=== PATIENT | male | born 1990 | race Caucasian/White ===

== ENCOUNTER → 2021-02-02 11:50 | Outpatient (BNVA) | payer MEDICARE, MEDICAID, SELFPAY | PROVIDERS: PCP Internal Medicine; Visit Provider Dietitian, Registered | DX: E66.01 Morbid (severe) obesity due to excess calories (principal); Z68.41 Body mass index [BMI] 40.0-44.9, adult | CPT/HCPCS: 97802 ==

== ENCOUNTER → 2021-03-19 08:40 | Outpatient (BNVA) | payer MEDICARE, MEDICAID, SELFPAY | PROVIDERS: PCP Internal Medicine; Visit Provider Dietitian, Registered | DX: E66.01 Morbid (severe) obesity due to excess calories (principal); Z68.42 Body mass index [BMI] 45.0-49.9, adult | CPT/HCPCS: 97803 ==

== ENCOUNTER 2021-04-07 08:51 | Outpatient (REF) | payer MEDICARE, MEDICAID, SELFPAY ==
[2021-04-07 09:09] LABS: MANUAL DIFF FLAG NO
[2021-04-07 10:12] LABS: Basophils Absolute Auto 0.1 X10*3/uL (0.0-0.2); Basophils Percent Auto 0.8 % (0-2); Eosinophils Absolute Auto 0.2 X10*3/uL (0.0-0.4); Eosinophils Percent Auto 2.4 % (0-4); Hematocrit 46.1 % (42.0-52.0); Hemoglobin 15.3 g/dl (14.0-18.0); Imm Gran Abs Auto 0.05 X10*3/uL (0.00-0.03); Imm Gran Pct Auto 0.6 % (0.0-0.4); Lymphocytes Absolute Auto 2.4 X10*3/uL (1.2-4.9); Lymphocytes Percent Auto 28.3 % (20-40); Mean Corpuscular HGB Conc 33.2 g/dl (31.0-36.0); Mean Corpuscular Volume 87.3 fL (80.0-98.0); Monocytes Absolute Auto 0.9 X10*3/uL (0.1-1.2); Monocytes Percent Auto 10.5 % (2-11); Neutrophils Absolute Auto 4.8 x10*3/uL (2.0-8.3); Neutrophils Percent Auto 57.4 % (45-73); Platelet Count 189 X10*3/uL (160-400); Red Blood Count 5.28 X10*6/uL (4.60-5.80); Red Cell Distribution Width 13.2 % (11.0-16.0); White Blood Count 8.3 X10*3/uL (4.8-10.8)
[2021-04-07 10:45] LABS: Estimated Average Glucose 108 mg/dL; Hemoglobin A1c % 5.4 %
[2021-04-07 10:53] LABS: Alanine Aminotransferase 46 U/L (0-40); Albumin Level 3.9 g/dL (3.5-5.0); Alkaline Phosphatase 63 U/L (39-117); Anion Gap 12 (12-20); Aspartate Amino Transferase 25 U/L (5-37); Bilirubin Total 1.9 mg/dL (0.0-1.0); Blood Urea Nitrogen 18 mg/dL (9-16); Calcium 8.8 mg/dL (8.4-10.2); Carbon Dioxide 28 mmol/L (22-29); Chloride 105 mmol/L (96-108); Cholesterol 154 mg/dL; Estimated Glomerular Filt Rate > 60; Glucose Random 89 mg/dL (60-115); HDL Cholesterol 37 mg/dL; LDL Cholesterol Calculated 96 mg/dl; Potassium 4.4 mmol/L (3.3-5.1); Sodium 141 mmol/L (135-145); Total Protein 6.8 g/dL (6.5-8.0); Triglycerides 108 mg/dL
[2021-04-07 11:06] LABS: Free T4 (Free Thyroxine) 1.03 ng/dL (0.71-1.85); Thyroid Stimulating Hormone 0.69 uIU/mL (0.32-4.0)
[2021-04-09 09:13] LABS: Folate 9.2 ng/mL (> or = 4.0); Vitamin B12 292 pg/mL (200-900)
== END 2021-04-07 08:52 | disposition home or self-care (01) ==
LOC: HO.LAB 08:51
PROVIDERS: PCP Internal Medicine; Visit Provider Internal Medicine
DX: E66.01 Morbid (severe) obesity due to excess calories (principal); E78.00 Pure hypercholesterolemia, unspecified
CPT/HCPCS: 36415; 80053; 80061; 82607; 82746; 83036; 84439; 84443; 85025

== ENCOUNTER → 2021-05-14 09:07 | Outpatient (BNVA) | payer MEDICARE, MEDICAID, SELFPAY | PROVIDERS: PCP Internal Medicine; Visit Provider Dietitian, Registered | DX: E66.01 Morbid (severe) obesity due to excess calories (principal); Z71.3 Dietary counseling and surveillance | CPT/HCPCS: 97803 ==

== ENCOUNTER 2021-06-05 07:43 | Outpatient (REF) | payer MEDICARE, MEDICAID, SELFPAY ==
--- NOTE | ~2021-06-05 | US_ITS ---
EXAMINATION: US ABDOMEN COMPLETE CLINICAL INFORMATION: Morbid obesity. COMPARISON: Previous abdominal ultrasound September 2016 TECHNIQUE: Real-time imaging of the abdominal viscera. FINDINGS: PANCREAS: Not well visualized due to bowel gas ABDOMINAL AORTA: The proximal, mid, and distal segments are normal in caliber. INFERIOR VENA CAVA: Visualized portions are normal. LIVER: The liver is normal in size. The liver contour is normal. Liver echotexture is increased probably representing fatty infiltration. No focal hepatic lesion. There is no intrahepatic biliary duct dilatation seen. GALLBLADDER: Normal. The gallbladder is physiologically distended without evidence of stones, sludge, polyps, wall thickening or pericholecystic fluid. COMMON BILE DUCT: Normal in caliber measuring 0.39 cm in diameter. RIGHT KIDNEY: Normal. No hydronephrosis. No renal calculi or focal parenchymal lesions. The kidney measures 10.5 cm in maximum dimension. LEFT KIDNEY: Normal. No hydronephrosis. No renal calculi or focal parenchymal lesions. The kidney measures 10.4 cm in maximum dimension. SPLEEN: Normal. The spleen measures 11.4 cm in maximum dimension. FREE FLUID: None. US/US abdomen complete IMPRESSION: Echogenic liver probably representing fatty infiltration. Limited visualization of the pancreas.
== END 2021-06-05 07:44 | disposition home or self-care (01) ==
LOC: HO.US 07:43
PROVIDERS: PCP Internal Medicine; Visit Provider Internal Medicine
DX: R79.89 Other specified abnormal findings of blood chemistry (principal)
CPT/HCPCS: 76700

== ENCOUNTER → 2021-08-24 09:00 | Outpatient (BNVA) | payer MEDICARE, MEDICAID, SELFPAY | PROVIDERS: PCP Internal Medicine; Visit Provider Dietitian, Registered | DX: E66.01 Morbid (severe) obesity due to excess calories (principal); Z68.41 Body mass index [BMI] 40.0-44.9, adult; Z71.3 Dietary counseling and surveillance | CPT/HCPCS: 97803 ==

== ENCOUNTER → 2021-11-23 09:43 | Outpatient (BNVA) | payer MEDICARE, MEDICAID, SELFPAY | PROVIDERS: PCP Internal Medicine; Visit Provider Dietitian, Registered | DX: E66.01 Morbid (severe) obesity due to excess calories (principal); Z68.41 Body mass index [BMI] 40.0-44.9, adult | CPT/HCPCS: 97803 ==

== ENCOUNTER → 2022-02-22 11:30 | Outpatient (BNVA) | payer MEDICARE, MEDICAID, SELFPAY | PROVIDERS: Visit Provider Dietitian, Registered | DX: E66.01 Morbid (severe) obesity due to excess calories (principal) | CPT/HCPCS: 97803 ==

== ENCOUNTER 2022-07-12 09:44 | Outpatient (REF) | payer MEDICARE, MEDICAID, SELFPAY ==
[2022-07-12 10:07] LABS: Basophils Absolute Auto 0.1 X10*3/uL (0.0-0.2); Basophils Percent Auto 0.8 % (0-2); Eosinophils Absolute Auto 0.2 X10*3/uL (0.0-0.4); Eosinophils Percent Auto 2.5 % (0-4); Hematocrit 46.3 % (42.0-52.0); Hemoglobin 15.8 g/dl (14.0-18.0); Imm Gran Abs Auto 0.03 X10*3/uL (0.00-0.03); Imm Gran Pct Auto 0.4 % (0.0-0.4); Lymphocytes Absolute Auto 2.1 X10*3/uL (1.2-4.9); Lymphocytes Percent Auto 27.8 % (20-40); MANUAL DIFF FLAG NO; Mean Corpuscular HGB Conc 34.1 g/dl (31.0-36.0); Mean Corpuscular Hemoglobin 28.7 pg (27.0-33.0); Mean Platelet Volume 10.4 fL (9.4-12.4); Monocytes Absolute Auto 0.7 X10*3/uL (0.1-1.2); Monocytes Percent Auto 9.1 % (2-11); Neutrophils Absolute Auto 4.5 x10*3/uL (2.0-8.3); Neutrophils Percent Auto 59.4 % (45-73); Platelet Count 207 X10*3/uL (160-400); Red Blood Count 5.51 X10*6/uL (4.60-5.80); White Blood Count 7.5 X10*3/uL (4.8-10.8)
[2022-07-12 11:11] LABS: Alanine Aminotransferase 133 U/L (0-40); Alkaline Phosphatase 63 U/L (39-117); Anion Gap 11 (12-20); Aspartate Amino Transferase 61 U/L (5-37); Bilirubin Total 2.7 mg/dL (0.0-1.0); Blood Urea Nitrogen 17 mg/dL (9-16); Calcium 8.6 mg/dL (8.4-10.2); Carbon Dioxide 27 mmol/L (22-29); Chloride 105 mmol/L (96-108); Cholesterol 141 mg/dL; Estimated Glomerular Filt Rate > 60; Glucose Random 104 mg/dL (60-115); HDL Cholesterol 46 mg/dL; LDL Cholesterol Calculated 80 mg/dl; Potassium 4.4 mmol/L (3.3-5.1); Sodium 139 mmol/L (135-145); Total Protein 6.9 g/dL (6.5-8.0); Triglycerides 77 mg/dL
[2022-07-12 11:44] LABS: Folate 13.2 ng/mL (> or = 4.0); Vitamin B12 373 pg/mL (200-900)
== END 2022-07-12 09:45 | disposition home or self-care (01) ==
LOC: HO.LAB 09:44
PROVIDERS: PCP Internal Medicine; Visit Provider Internal Medicine
DX: E66.01 Morbid (severe) obesity due to excess calories (principal); E78.00 Pure hypercholesterolemia, unspecified; Z71.3 Dietary counseling and surveillance
CPT/HCPCS: 36415; 80053; 80061; 82607; 82746; 84439; 84443; 85025; 97803

== ENCOUNTER → 2022-09-02 10:16 | Outpatient (BNVA) | payer MEDICARE, MEDICAID, SELFPAY | PROVIDERS: PCP Internal Medicine; Visit Provider Dietitian, Registered | DX: E66.01 Morbid (severe) obesity due to excess calories (principal); Z71.3 Dietary counseling and surveillance | CPT/HCPCS: 97803 ==

== ENCOUNTER 2023-01-08 08:18 | Outpatient (AMB) | payer MEDICARE, MEDICAID, SELFPAY ==
[2023-01-08 08:24] VITALS: BP 118/70; PULSE 86; O2SAT 97; BMI 46.4
--- NOTE | 2023-01-08 08:24 | A.OFFPC_ITS ---
Vital Signs 01/08/23 08:24 Height 5 ft 7 in Weight 296 lb BMI 46.4 BP 118/70 Blood Pressure Location Lt brachial Position Sitting Pulse 86 Pulse Source Pulse Oximeter Pulse Oximetry (%) 97 Oxygen Delivery Method Room Air Intake Visit Reasons: htn, Fatty Liver Allergies No Known Allergies Allergy (Verified 07/25/22 10:20) Medication List - Last Reconciled 01/08/23 by Panda Bansal MD blood pressure monitor (Blood Pressure Kit) As directed calcium carb,lactat-vitamin D3 200 mg-6.25 mcg (250 unit) 1 tab PO DAILY [CPAP full face mask medium pressure of 12 cm humidified air As directed] folic acid 1 mg PO DAILY hydrochlorothiazide 12.5 mg PO DAILY ketoconazole 2% 1 appl topical 2XW liraglutide (weight loss) (Saxenda) inject subcutaneously once daily: week 1 = 0.6 mg; week 2 = 1.2 mg; week 3 = 1.8 mg; week 4 = 2.4 mg; then 3 mg daily subcut loratadine 10 mg PO DAILY trazodone 150 mg PO BEDTIME PRN triamcinolone acetonide 0.5% 1 appl topical BID Tobacco use date assessed: 07/25/22 Dental Screening Dental Screen Date: 01/08/23 Did you have a dental visit in the last 12 months?: Yes Did you have a dental problem in the last 6 months where you did not have access to dental care?: No Was dental information given to patient?: Patient has dentist HPI htn, Fatty Liver HPI Details 32-year-old morbidly obese male with his tory of sleep apnea fatty liver impaired glucose tolerance hypertension last seen in June 2022 patient is here for follow-up. Patient's last blood work was done in June noted elevated liver function test and elevated blood sugar. Had a long discussion with family regarding weight loss for the patient patient continues to gain weight even with the airplane mechanic apprentice guidance. Was epic prescription was sent in but not covered. 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 Social History (Updated 01/12/21 @ 10:03 by Panda Bansal MD) Housing: Other Alcohol intake: never Patient Tobacco Use Status: Never used Tobacco e-Cigarette/Vaping Use: Never Used Second Hand Smoke Exposure: No service: No Current occupational status: employed Cognitive needs: Yes Hearing needs: No Vision needs: No Questionnaire PHQ-9 Over the last 2 weeks, how often have you been bothered by any of the following problems? 1. Little interest or pleasure in doing things: not at all 2. Feeling down, depressed, or hopeless: not at all 3. Trouble falling or staying asleep, or sleeping too much: not at all 4. Feeling tired or having little energy: not at all 5. Poor appetite or overeating: not at all 6. Feeling bad about yourself - or that you are a failure or have let yourself or your family down: not at all 7. Trouble concentrating on things, such as reading the newspaper or watching television: not at all 8. Moving or speaking so slowly that other people could have noticed. Or the opposite - being so fidgety or restless that you have been moving around a lot more than usual: not at all 9. Thoughts that you would be better off or of hurting yourself in some way: not at all Total score: 0 Depression Screening Interpretation: Negative Source: Developed by Drs. Andrés Arias, Dexter Benitez and colleagues, with an educational carol ann from [employer]. Thrive Questionnaire Date Thrive assessed: 07/25/22 AUDIT C Alcohol Use Questionnaire (AUDIT-C) 1. How often do you have a drink containing alcohol?: Never 3. How often do you have six or more drinks on one occasion?: Never Total Score: 0 AUTUMN-7 AMB Questionnaire AUTUMN-7 Date AUTUMN - 7 assessed: 07/25/22 Source: Developed by Drs. Andrés Arias, Dexter Benitez and colleagues, with an educational carol ann from [employer]. Physical exam (Primary Care) Vital Signs: Last Vital Signs Pulse 86 01/08/23 08:24 BP 118/70 01/08/23 08:24 Pulse Ox 97 01/08/23 08:24 Oxygen Delivery Method Room Air 01/08/23 08:24 BMI result Body Mass Index 46.4 Tobacco/Smoking Status: Tobacco use Status Tobacco use date assessed 07/25/22 01/08/23 08:30 Patient Tobacco Use Status Never used Tobacco 01/08/23 08:30 e-Cigarette/Vaping Use Never Used 01/08/23 08:30 PHQ-9: PHQ-9 Score PHQ-9: Total score 0 01/08/23 08:30 Depression Screening Interpretation: Negative Thrive Assessment: Date of Thrive Assessment Date Thrive assessed 07/25/22 01/08/23 08:30 Const General: alert; No acute distress Eyes Conjunctivae: conjunctivae normal Resp Auscultation: clear to auscultation bilaterally Cardio Rate: regular rate Rhythm: regular rhythm GI Inspection: Yes normal to inspection Extrem General: Yes normal to inspection and No edema Assessment and Plan Assessment & Plan (1) Hypertension: Code(s): I10 - Essential (primary) hypertension Plan: Continue with blood pressure medication. Decrease salt intake and exercise patient presently is on hydrochlorothiazide . Patient has blood pressure monitor and advised to continue to monitor (2) Impaired glucose tolerance: Code(s): R73.02 - Impaired glucose tolerance (oral) Plan: Decrease the amount of carbohydrate intake, pasta, bread, rice and potatoes are all sugar and that is aside from all the sweet stuff, remember that fruits are good but they are Sweet also. Will do retesting (3) Fatty liver: Code(s): K76.0 - Fatty (change of) liver, not elsewhere classified Plan: Low-fat diet patient has been referred to the duration (4) Obstructive sleep apnea: Comment: CPAP use Code(s): G47.33 - Obstructive sleep apnea (adult) (pediatric) Plan: Continue using the CPAP more than 4 hours a night and benefits from this (5) Obesities, morbid: Code(s): E66.01 - Morbid (severe) obesity due to excess calories Plan: Diet and exercise. Ozempic prescription sent in but not covered. Will try to send in Saxenda Orders: Orders Complete Blood Count Auto Diff Today R73.02 - Impaired glucose tolerance (oral) Hemoglobin A1c Today R73.02 - Impaired glucose tolerance (oral) Comprehensive Met. Panel Today R73.02 - Impaired glucose tolerance (oral) Lipid Panel Today E78.00 - Pure hypercholesterolemia, unspecified, R73.02 - Impaired glucose tolerance (oral) Thyroid Stimulating Hormone Today R73.02 - Impaired glucose tolerance (oral) Free T4 (Free Thyroxine) Today R73.02 - Impaired glucose tolerance (oral) Medications: New liraglutide (weight loss) (Saxenda) inject subcutaneously once daily: week 1 = 0.6 mg; week 2 = 1.2 mg; week 3 = 1.8 mg; week 4 = 2.4 mg; then 3 mg daily subcut 15 mL 0RF E66.01 - Morbid (severe) obesity due to excess calories Coding Level of Care Code Est Pt Level 4 (79771) Diagnoses Hypertension I10 Impaired glucose tolerance R73.02 Fatty liver K76.0 Obstructive sleep apnea G47.33 Obesities, morbid E66.01
== END 2023-01-08 08:52 | disposition home or self-care (01) ==
PROVIDERS: PCP Internal Medicine; Visit Provider Internal Medicine
DX: I10 Essential (primary) hypertension (principal); R73.02 Impaired glucose tolerance (oral); E66.01 Morbid (severe) obesity due to excess calories; Z68.42 Body mass index [BMI] 45.0-49.9, adult; K76.0 Fatty (change of) liver, not elsewhere classified; G47.33 Obstructive sleep apnea (adult) (pediatric)
CPT/HCPCS: 99214

== ENCOUNTER 2023-01-08 09:02 | Outpatient (REF) | payer MEDICARE, MEDICAID, SELFPAY ==
[2023-01-08 09:19] LABS: MANUAL DIFF FLAG NO
[2023-01-08 10:16] LABS: Basophils Absolute Auto 0.1 X10*3/uL (0.0-0.2); Eosinophils Absolute Auto 0.2 X10*3/uL (0.0-0.4); Eosinophils Percent Auto 2.1 % (0-4); Hematocrit 45.6 % (42.0-52.0); Hemoglobin 15.6 g/dl (14.0-18.0); Imm Gran Abs Auto 0.05 X10*3/uL (0.00-0.03); Imm Gran Pct Auto 0.6 % (0.0-0.4); Lymphocytes Absolute Auto 2.3 X10*3/uL (1.2-4.9); Lymphocytes Percent Auto 26.9 % (20-40); Mean Corpuscular HGB Conc 34.2 g/dl (31.0-36.0); Mean Corpuscular Hemoglobin 29.4 pg (27.0-33.0); Monocytes Absolute Auto 0.7 X10*3/uL (0.1-1.2); Monocytes Percent Auto 8.6 % (2-11); Neutrophils Absolute Auto 5.1 x10*3/uL (2.0-8.3); Neutrophils Percent Auto 60.8 % (45-73); Platelet Count 192 X10*3/uL (160-400); Red Cell Distribution Width 13.2 % (11.0-16.0); White Blood Count 8.4 X10*3/uL (4.8-10.8)
[2023-01-08 10:26] LABS: Estimated Average Glucose 100 mg/dL; Hemoglobin A1c % 5.1 % (<6.0)
[2023-01-08 10:49] LABS: Alanine Aminotransferase 126 U/L (0-40); Albumin Level 3.8 g/dL (3.5-5.0); Alkaline Phosphatase 63 U/L (39-117); Anion Gap 10 (12-20); Aspartate Amino Transferase 47 U/L (5-37); Bilirubin Total 1.1 mg/dL (0.0-1.0); Blood Urea Nitrogen 20 mg/dL (9-16); Calcium 8.7 mg/dL (8.4-10.2); Carbon Dioxide 26 mmol/L (22-29); Chloride 108 mmol/L (96-108); Cholesterol 153 mg/dL (<200); Estimated Glomerular Filt Rate > 60; Glucose Random 98 mg/dL (60-115); HDL Cholesterol 45 mg/dL (>40); LDL Cholesterol Calculated 93 mg/dL (<100); Potassium 4.1 mmol/L (3.3-5.1); Sodium 140 mmol/L (135-145); Total Protein 7.1 g/dL (6.5-8.0); Triglycerides 78 mg/dL (<150)
[2023-01-08 11:10] LABS: Free T4 (Free Thyroxine) 0.97 ng/dL (0.71-1.85); Thyroid Stimulating Hormone 0.66 uIU/mL (0.32-4.0)
== END 2023-01-08 09:03 | disposition home or self-care (01) ==
LOC: HO.LAB 09:02
PROVIDERS: PCP Internal Medicine; Visit Provider Internal Medicine
DX: R73.02 Impaired glucose tolerance (oral) (principal); E78.00 Pure hypercholesterolemia, unspecified
CPT/HCPCS: 36415; 80053; 80061; 83036; 84439; 84443; 85025

== ENCOUNTER 2023-01-28 08:59 | Outpatient (AMB) | payer MEDICARE, MEDICAID, SELFPAY ==
[2023-01-28 09:07] VITALS: BP 122/76; PULSE 100; O2SAT 98; BMI 45.9
--- NOTE | 2023-01-28 09:07 | MHC.PC.OV ---
Vital Signs 01/28/23 09:07 Height 5 ft 7 in Weight 293 lb BMI 45.9 BP 122/76 Blood Pressure Location Lt brachial Position Sitting Pulse 100 Pulse Source Pulse Oximeter Pulse Oximetry (%) 98 Oxygen Delivery Method Room Air Intake Visit Reasons: PE Allergies No Known Allergies Allergy (Verified 01/28/23 09:07) Medication List - Last Reconciled 01/28/23 by Panda Bansal MD blood pressure monitor (Blood Pressure Kit) As directed calcium carb,lactat-vitamin D3 200 mg-6.25 mcg (250 unit) 1 tab PO DAILY [CPAP full face mask medium pressure of 12 cm humidified air As directed] folic acid 1 mg PO DAILY hydrochlorothiazide 12.5 mg PO DAILY ketoconazole 2% 1 appl topical 2XW liraglutide (weight loss) (Saxenda) inject subcutaneously once daily: week 1 = 0.6 mg; week 2 = 1.2 mg; week 3 = 1.8 mg; week 4 = 2.4 mg; then 3 mg daily subcut loratadine 10 mg PO DAILY trazodone 150 mg PO BEDTIME PRN triamcinolone acetonide 0.5% 1 appl topical BID Tobacco use date assessed: 07/25/22 Dental Screening Dental Screen Date: 01/28/23 Did you have a dental visit in the last 12 months?: Yes Did you have a dental problem in the last 6 months where you did not have access to dental care?: No Was dental information given to patient?: Patient has dentist HPI PE HPI Details 32-year-old morbidly obese male with cerebral palsy, learning disability with obstructive sleep apnea fatty liver impaired glucose tolerance hypertension coming in for physical exam last seen in December 2022. [facility] Medical History (Updated 01/08/23 @ 11:13 by Brandi Linder) LFT elevation Seizures Vitamin D deficiency Cerebral palsy Obstructive sleep apnea Surgical History (Updated 01/08/23 @ 11:13 by Brandi Linder) Hx of adenoidectomy History of vasectomy Family History (Updated 01/28/23 @ 09:17 by Panda Bansal MD) Father Alcohol abuse Mother Uterine cancer Brother No problems noted. Maternal Grandfather Myocardial infarct Maternal Grandmother Myocardial infarct Social History (System 01/08/23 @ 11:13 by Brandi Linder) Housing: Other Alcohol intake: never Patient Tobacco Use Status: Never used Tobacco e-Cigarette/Vaping Use: Never Used Second Hand Smoke Exposure: No service: No Current occupational status: employed Cognitive needs: Yes Hearing needs: No Vision needs: No Questionnaire PHQ-9 Over the last 2 weeks, how often have you been bothered by any of the following problems? 1. Little interest or pleasure in doing things: not at all 2. Feeling down, depressed, or hopeless: not at all 3. Trouble falling or staying asleep, or sleeping too much: not at all 4. Feeling tired or having little energy: not at all 5. Poor appetite or overeating: not at all 6. Feeling bad about yourself - or that you are a failure or have let yourself or your family down: not at all 7. Trouble concentrating on things, such as reading the newspaper or watching television: not at all 8. Moving or speaking so slowly that other people could have noticed. Or the opposite - being so fidgety or restless that you have been moving around a lot more than usual: not at all 9. Thoughts that you would be better off or of hurting yourself in some way: not at all Total score: 0 Depression Screening Interpretation: Negative Source: Developed by Drs. Andrés Arias, Dimple Hill, Dextre Richmond and colleagues, with an educational carol ann from [employer]. Thrive Questionnaire Date Thrive assessed: 07/25/22 AUDIT C Alcohol Use Questionnaire (AUDIT-C) 1. How often do you have a drink containing alcohol?: Never 3. How often do you have six or more drinks on one occasion?: Never Total Score: 0 AUTUMN-7 AMB Questionnaire AUTUMN-7 Date AUTUMN - 7 assessed: 07/25/22 Source: Developed by Drs. Andrés Arias, Dimple Hill, Dexter Richmond and colleagues, with an educational carol ann from [employer]. Review of Systems Const Denies poor appetite and Denies weakness Eyes Denies no additional complaints ENT Reports Normal hearing present, Denies dizziness, Denies nasal congestion, Denies tinnitus and Denies sore throat Card Denies chest pain, Denies syncope, Denies rapid heart rate and Denies dyspnea Resp Denies cough and Denies dyspnea GI Denies change in stool character, Reports constipation, Denies diarrhea, Denies nausea and Denies vomiting Denies dysuria and Denies urinary frequency Neuro Reports Normal hearing present, Denies confusion, Denies dizziness, Denies syncope and Denies weakness Psych Denies confusion Physical exam (Primary Care) Vital Signs: Last Vital Signs Pulse 100 01/28/23 09:07 BP 122/76 01/28/23 09:07 Pulse Ox 98 01/28/23 09:07 Oxygen Delivery Method Room Air 01/28/23 09:07 BMI result Body Mass Index 45.9 Tobacco/Smoking Status: Tobacco use Status Tobacco use date assessed 07/25/22 01/28/23 09:08 Patient Tobacco Use Status Never used Tobacco 01/28/23 09:08 e-Cigarette/Vaping Use Never Used 01/28/23 09:08 PHQ-9: PHQ-9 Score PHQ-9: Total score 0 01/28/23 09:12 Depression Screening Interpretation: Negative Thrive Assessment: Date of Thrive Assessment Date Thrive assessed 07/25/22 01/28/23 09:08 Const General: alert and awake; No confusion Orientation/consciousness: No confusion HENMT Head: Yes normocephalic Ears: external ears normal and TM's normal bilaterally Face and sinus: Yes normal facial exam Mouth: moist mucous membranes Throat: Yes tonsils normal Eyes Conjunctivae: conjunctivae normal Pupils: Equal, round and reactive pupils present and Pupil accommodation reflex normal Direct Ophthalmoscopy: normal light reflex Neck Neck: No lymphadenopathy Thyroid: Thyroid normal Chest Chest palpation & inspection: normal inspection of the chest Resp Effort & Inspection: normal respiratory effort and no audible wheezes Auscultation: clear to auscultation bilaterally, no crackles, no wheezes and lung sounds not diminished Cardio Rate: regular rate Rhythm: regular rhythm Peripheral pulses: radial pulses present and dorsalis pedis present GI Other: Visual exam negative Palpation (GI): no masses Auscultation: normal bowel sounds and normoactive bowel sounds Rectal Exam - Male: Yes deferred Male General Exam: Yes normal external exam Skin General skin exam: no rashes or lesions noted Rashes: no rashes Neuro General: deep tendon reflexes 2+ bilaterally and No confusion Cranial nerves: Yes Equal, round and reactive pupils present, Yes Midline tongue present, Yes Normal hearing present and Yes Ability to bilaterally elevate shoulders present Cognition (Neuro): normal cognition Gait exam (Neuro): Normal gait present Motor exam (neuro): 5 motor strength present throughout Deep tendon reflexes (DTR's): Right brachioradialis reflex intensity grade: 2+, Left brachioradialis reflex intensity grade: 2+, Right patellar reflex intensity grade: 2+ and Left patellar reflex intensity grade: 2+ Extrem General: No edema Office Procedures Flu Questionnaire Does the patient have a severe egg allergy?: No Does the patient have severe life threatening allergies?: No Does the patient have a fever or illness today?: No Has the patient ever had Guillain-Greenbush Syndrome?: No Has the patient ever had any past reaction to a flu shot?: No Immunizations flu vacc [id number] 6mos up(PF) 60 mcg(15 mcgx4)/0.5 mL IM syringe Performing Provider: Panda Bansal MD [facility] Administered by: Monika Meza CMA on 01/28/23 09:16 Dose Route Admin Location Dispensed Lot Number Expiration Date [employer] 0.5 mL IM Left Deltoid 0.5 mL [id number] 10/26/23 23288-154-20 [employer] VIS Given Date VIS Provided VIS Publication Date 01/28/23 Single Vaccine 20 Eligibility Eligibility Date Funding Source Not [facility] Eligible 01/28/23 Private Assessment and Plan Assessment & Plan (1) Annual physical exam: Code(s): Z00.00 - Encounter for general adult medical examination without abnormal findings (2) Obesities, morbid: Code(s): E66.01 - Morbid (severe) obesity due to excess calories Plan: Diet and exercise (3) Obstructive sleep apnea: Comment: CPAP use Code(s): G47.33 - Obstructive sleep apnea (adult) (pediatric) Plan: Continue to use the CPAP more than 4 hours a night and benefits (4) Fatty liver: Code(s): K76.0 - Fatty (change of) liver, not elsewhere classified Plan: Low-fat diet and exercise (5) Hypertension: Code(s): I10 - Essential (primary) hypertension Plan: Continue with blood pressure medication. Decrease salt intake and exercise continue with hydrochlorothiazide 12.5 mg once a day (6) Impaired glucose tolerance: Code(s): R73.02 - Impaired glucose tolerance (oral) Plan: Decrease the amount of carbohydrate intake, pasta, bread, rice and potatoes are all sugar and that is aside from all the sweet stuff, remember that fruits are good but they are Sweet also. Hemoglobin A1c results within normal limit Orders: Orders Influenza [id number] Immunization Today Z23 - Encounter for immunization Coding Level of Care Code Est Pt Prev Care 18-39y([id number]) Diagnoses Annual physical exam Z00.00 Obesities, morbid E66.01 Obstructive sleep apnea G47.33 Fatty liver K76.0 Hypertension I10 Impaired glucose tolerance R73.02
== END 2023-01-28 09:35 | disposition home or self-care (01) ==
PROVIDERS: Visit Provider Internal Medicine
DX: Z00.00 Encounter for general adult medical examination without abnormal findings (principal); E66.01 Morbid (severe) obesity due to excess calories; Z68.42 Body mass index [BMI] 45.0-49.9, adult; Z23 Encounter for immunization; G47.33 Obstructive sleep apnea (adult) (pediatric); K76.0 Fatty (change of) liver, not elsewhere classified; I10 Essential (primary) hypertension; R73.02 Impaired glucose tolerance (oral)
CPT/HCPCS: 90471; 90686; 99395

== ENCOUNTER 2023-07-30 07:31 | Outpatient (AMB) | payer OTHER, MEDICAID, SELFPAY ==
[2023-07-30 07:56] VITALS: BP 128/76; PULSE 89; O2SAT 99; BMI 47.5
--- NOTE | 2023-07-30 07:56 | A.OFFPC_ITS ---
Vital Signs 07/30/23 07:56 Height 5 ft 7 in Weight 303 lb BMI 47.5 BP 128/76 Blood Pressure Location Lt brachial Position Sitting Pulse 89 Pulse Source Pulse Oximeter Pulse Oximetry (%) 99 Oxygen Delivery Method Room Air Intake Visit Reasons: obesity, HTN Allergies No Known Allergies Allergy (Verified 07/30/23 07:57) Medication List - Last Reconciled 07/30/23 by Panda Bansal MD blood pressure monitor (Blood Pressure Kit) As directed calcium carb,lactat-vitamin D3 200 mg-6.25 mcg (250 unit) 1 tab PO DAILY [CPAP full face mask medium pressure of 12 cm humidified air As directed] folic acid 1 mg PO DAILY hydrochlorothiazide 12.5 mg PO DAILY ketoconazole 2% 1 appl topical 2XW loratadine 10 mg PO DAILY semaglutide (weight loss) (Wegovy) 0.25 mg (0.5 mL) subcut QWEEK trazodone 150 mg PO BEDTIME PRN triamcinolone acetonide 0.5% 1 appl topical BID Tobacco use date assessed: 07/30/23 Dental Screening Dental Screen Date: 07/30/23 Did you have a dental visit in the last 12 months?: No Did you have a dental problem in the last 6 months where you did not have access to dental care?: No Was dental information given to patient?: Patient has dentist HPI obesity, HTN HPI Details 33-year-old morbidly obese male with obs tructive sleep apnea hypertension impaired glucosefatty liver coming in for follow-up. January 2023 last seen. PFSH Medical History (Updated 01/08/23 @ 11:13 by Brandi Linder) LFT elevation Seizures Vitamin D deficiency Cerebral palsy Obstructive sleep apnea Surgical History (Updated 01/08/23 @ 11:13 by Barndi Linder) Hx of adenoidectomy History of vasectomy Family History (Updated 01/28/23 @ 09:17 by Panda Bansal MD) Father Alcohol abuse Mother Uterine cancer Brother No problems noted. Maternal Grandfather Myocardial infarct Maternal Grandmother Myocardial infarct Social History (System 01/08/23 @ 11:13 by Brandi Linder) Housing: Other Alcohol intake: never Patient Tobacco Use Status: Never used Tobacco e-Cigarette/Vaping Use: Never Used Second Hand Smoke Exposure: No service: No Current occupational status: employed Cognitive needs: Yes Hearing needs: No Vision needs: No Questionnaire PHQ-9 Over the last 2 weeks, how often have you been bothered by any of the following problems? 1. Little interest or pleasure in doing things: not at all 2. Feeling down, depressed, or hopeless: not at all 3. Trouble falling or staying asleep, or sleeping too much: not at all 4. Feeling tired or having little energy: not at all 5. Poor appetite or overeating: not at all 6. Feeling bad about yourself - or that you are a failure or have let yourself or your family down: not at all 7. Trouble concentrating on things, such as reading the newspaper or watching television: not at all 8. Moving or speaking so slowly that other people could have noticed. Or the opposite - being so fidgety or restless that you have been moving around a lot more than usual: not at all 9. Thoughts that you would be better off or of hurting yourself in some way: not at all Total score: 0 Depression Screening Interpretation: Negative Depression Screening Done: Yes Source: Developed by Drs. Andrés Arias, Dimple Hill, Dexter Richmond and colleagues, with an educational carol ann from [employer]. Thrive Questionnaire Date Thrive assessed: 07/30/23 I am a: Patient What is your living situation today?: I have a steady place to live Within the past 12 months, did the food you bought not last and you didn't have the money to get more?: Never true Within the past 12 months, did you worry whether your food would run out before you got money to buy more?: Never true Do you have trouble paying for medicines?: No Do you have trouble getting transportation to medical appointments?: No Do you have trouble paying your heating and electricity bill?: No Do you have trouble taking care of your child, family member or friend?: No Do you have trouble with day-to-day activities such as bathing, preparing meals, shopping, managing finances, etc.?: No Are you currently unemployed and looking for a job?: No Are you interested in more education?: No Currently or been in a relationship where the following occur: no concerns reported THRIVE Score: 0 AUDIT C Alcohol Use Questionnaire (AUDIT-C) 1. How often do you have a drink containing alcohol?: Never 3. How often do you have six or more drinks on one occasion?: Never Total Score: 0 AUTUMN-7 AMB Questionnaire AUTUMN-7 Date AUTUMN - 7 assessed: 07/30/23 Feeling nervous, anxious, or on edge: 0 = Not at all Not being able to stop or control worryin = Not at all Worrying too much about different things: 0 = Not at all Trouble relaxin = Not at all Being so restless that it is hard to sit still: 0 = Not at all Becoming easily annoyed or irritable: 0 = Not at all Feeling afraid as if something awful might happen: 0 = Not at all Total AUTUMN-7 score (0-4 normal; 5-9 mild; 10-14 moderate; 15-21 severe): 0 Source: Developed by Drs. Andrés Arias, Dimple Hill, Dexter Richmond and colleagues, with an educational carol ann from [employer]. Physical exam (Primary Care) Vital Signs: Last Vital Signs Pulse 89 07/30/23 07:56 BP 128/76 07/30/23 07:56 Pulse Ox 99 07/30/23 07:56 Oxygen Delivery Method Room Air 07/30/23 07:56 BMI result Body Mass Index 47.5 Tobacco/Smoking Status: Tobacco use Status Tobacco use date assessed 07/30/23 07/30/23 08:06 Patient Tobacco Use Status Never used Tobacco 07/30/23 08:06 e-Cigarette/Vaping Use Never Used 07/30/23 08:06 PHQ-9: PHQ-9 Score PHQ-9: Total score 0 07/30/23 08:06 Depression Screening Interpretation: Negative Thrive Assessment: Date of Thrive Assessment Date Thrive assessed 07/30/23 07/30/23 08:06 Currently or been in a relationship where the following occur: no concerns reported Const General: alert; No acute distress Eyes Conjunctivae: conjunctivae normal Resp Auscultation: clear to auscultation bilaterally Cardio Rate: regular rate Rhythm: regular rhythm GI Inspection: Yes normal to inspection Extrem General: Yes normal to inspection and No edema Assessment and Plan Assessment & Plan (1) Obesities, morbid: Code(s): E66.01 - Morbid (severe) obesity due to excess calories Plan: Prescription for wegovy was tried but with no coverage from insurance. Advised to keep active and eat healthy (2) Obstructive sleep apnea: Comment: CPAP use Code(s): G47.33 - Obstructive sleep apnea (adult) (pediatric) Plan: continue to use the CPAP more than 4 hours a night and benefits from this (3) Fatty liver: Code(s): K76.0 - Fatty (change of) liver, not elsewhere classified Plan: Low-fat diet (4) Hypertension: Code(s): I10 - Essential (primary) hypertension Plan: Continue with blood pressure medication. Decrease salt intake and exercise Orders: Orders Hemoglobin A1c 6 Months H61.23 - Impacted cerumen, bilateral Thyroid Stimulating Hormone 6 Months I10 - Essential (primary) hypertension Vitamin B12 and Folate 6 Months I10 - Essential (primary) hypertension Free T4 (Free Thyroxine) 6 Months I10 - Essential (primary) hypertension Comprehensive Met. Panel 6 Months H61.23 - Impacted cerumen, bilateral Complete Blood Count Auto Diff 6 Months I10 - Essential (primary) hypertension Lipid Panel 6 Months E78.00 - Pure hypercholesterolemia, unspecified, I10 - Essential (primary) hypertension Medications: Refilled semaglutide (weight loss) (Wegovy) administer weeks 1 through 4 of therapy 0.25 mg (0.5 mL) subcut QWEEK 2 mL 0RF E66.01 - Morbid (severe) obesity due to excess calories Coding Level of Care Code Est Pt Level 4 (71927) Diagnoses Obesities, morbid E66.01 Obstructive sleep apnea G47.33 Fatty liver K76.0 Hypertension I10
== END 2023-07-30 08:48 | disposition home or self-care (01) ==
PROVIDERS: PCP Internal Medicine; Visit Provider Internal Medicine
DX: E66.01 Morbid (severe) obesity due to excess calories (principal); Z68.42 Body mass index [BMI] 45.0-49.9, adult; K76.0 Fatty (change of) liver, not elsewhere classified; I10 Essential (primary) hypertension
CPT/HCPCS: 99214

== ENCOUNTER 2024-01-24 08:14 | Outpatient (REF) | payer OTHER, SELFPAY ==
[2024-01-24 08:27] LABS: MANUAL DIFF FLAG NO
[2024-01-24 09:36] LABS: Basophils Absolute Auto 0.1 X10*3/uL (0.0-0.2); Basophils Percent Auto 0.9 % (0-2); Eosinophils Absolute Auto 0.2 X10*3/uL (0.0-0.4); Hematocrit 46.6 % (42.0-52.0); Hemoglobin 15.3 g/dl (14.0-18.0); Imm Gran Abs Auto 0.05 X10*3/uL (0.00-0.03); Imm Gran Pct Auto 0.6 % (0.0-0.4); Lymphocytes Absolute Auto 2.4 X10*3/uL (1.2-4.9); Lymphocytes Percent Auto 30.5 % (20-40); Mean Corpuscular HGB Conc 32.8 g/dl (31.0-36.0); Mean Corpuscular Hemoglobin 28.9 pg (27.0-33.0); Mean Corpuscular Volume 88.1 fL (80.0-98.0); Mean Platelet Volume 11.1 fL (9.4-12.4); Monocytes Absolute Auto 0.7 X10*3/uL (0.1-1.2); Monocytes Percent Auto 9.3 % (2-11); Neutrophils Absolute Auto 4.4 x10*3/uL (2.0-8.3); Neutrophils Percent Auto 55.7 % (45-73); Platelet Count 206 X10*3/uL (160-400); Red Blood Count 5.29 X10*6/uL (4.60-5.80); Red Cell Distribution Width 13.2 % (11.0-16.0); White Blood Count 7.9 X10*3/uL (4.8-10.8)
[2024-01-24 09:43] LABS: Estimated Average Glucose 105 mg/dL; Hemoglobin A1c % 5.3 % (<6.0)
[2024-01-24 10:14] LABS: Alanine Aminotransferase 88 U/L (0-40); Albumin Level 3.7 g/dL (3.5-5.0); Alkaline Phosphatase 67 U/L (39-117); Anion Gap 11 (12-20); Aspartate Amino Transferase 45 U/L (5-37); Blood Urea Nitrogen 17 mg/dL (9-16); Calcium 8.5 mg/dL (8.4-10.2); Carbon Dioxide 25 mmol/L (22-29); Chloride 109 mmol/L (96-108); Cholesterol 135 mg/dL (<200); Estimated Glomerular Filt Rate > 60; Glucose Random 112 mg/dL (60-115); HDL Cholesterol 41 mg/dL (>40); LDL Cholesterol Calculated 66 mg/dL (<100); Sodium 141 mmol/L (135-145); Total Protein 6.9 g/dL (6.5-8.0); Triglycerides 141 mg/dL (<150)
[2024-01-24 10:33] LABS: Free T4 (Free Thyroxine) 0.95 ng/dL (0.71-1.85); Thyroid Stimulating Hormone 0.58 uIU/mL (0.32-4.0)
[2024-01-24 10:36] LABS: Folate 7.9 ng/mL (> or = 4.0); Vitamin B12 272 pg/mL (200-900)
== END 2024-01-24 08:15 | disposition home or self-care (01) ==
LOC: HO.LAB 08:14
PROVIDERS: PCP Internal Medicine; Visit Provider Internal Medicine
DX: I10 Essential (primary) hypertension (principal); E78.00 Pure hypercholesterolemia, unspecified; H61.23 Impacted cerumen, bilateral; Z13.1 Encounter for screening for diabetes mellitus
CPT/HCPCS: 36415; 80053; 80061; 82607; 82746; 83036; 84439; 84443; 85025

== ENCOUNTER 2024-02-02 08:13 | Outpatient (AMB) | payer OTHER, MEDICAID, SELFPAY ==
[2024-02-02 08:42] VITALS: BP 120/84; PULSE 90; O2SAT 95; BMI 48.0
--- NOTE | 2024-02-02 08:42 | MHC.PC.OV ---
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 Accompanied by: Self / Same As Patient Allergies No Known Allergies Allergy (Verified 02/02/24 08:43) Medication List - Last Reconciled 02/02/24 by Panda Bansal MD blood pressure monitor (Blood Pressure Kit) As directed [CPAP full face mask medium pressure of 12 cm humidified air As directed] hydrochlorothiazide 12.5 mg PO DAILY ketoconazole 2% 1 appl topical 2XW semaglutide (weight loss) (Wegovy) 0.25 mg (0.5 mL) subcut QWEEK trazodone 150 mg PO BEDTIME PRN triamcinolone acetonide 0.5% 1 appl topical BID Tobacco use date assessed: 02/02/24 Dental Screening Dental Screen Date: 02/02/24 Did you have a dental visit in the last 12 months?: Yes Did you have a dental problem in the last 6 months where you did not have access to dental care?: No Was dental information given to patient?: Patient has dentist HPI Annual Exam HPI Details 33-year-old morbidly obese male with obstructive sleep apnea fatty liver hypertension coming in for physical exam last seen in 08/16/2023. [facility] Medical History (Updated 02/02/24 @ 08:49 by Panda Bansal MD) Blood pressure elevated without history of HTN LFT elevation Seizures Vitamin D deficiency Cerebral palsy Obstructive sleep apnea Surgical History Hx of adenoidectomy History of vasectomy Family History (Updated 02/02/24 @ 08:54 by Panda Bansal MD) Father Alcohol abuse Mother Uterine cancer Brother No problems noted. Maternal Grandfather No problems noted. Maternal Grandmother No problems noted. Paternal Grandmother Myocardial infarct Paternal Grandfather Myocardial infarct Social History (System 01/08/23 @ 11:13 by Brandi Linder) Housing: Other Alcohol intake: never Patient Tobacco Use Status: Never used Tobacco e-Cigarette/Vaping Use: Never Used Second Hand Smoke Exposure: No service: No Current occupational status: employed Cognitive needs: Yes Hearing needs: No Vision needs: No Questionnaire PHQ-9 Over the last 2 weeks, how often have you been bothered by any of the following problems? 1. Little interest or pleasure in doing things: nearly every day 2. Feeling down, depressed, or hopeless: nearly every day 3. Trouble falling or staying asleep, or sleeping too much: not at all 4. Feeling tired or having little energy: nearly every day 5. Poor appetite or overeating: not at all 6. Feeling bad about yourself - or that you are a failure or have let yourself or your family down: more than half the days 7. Trouble concentrating on things, such as reading the newspaper or watching television: nearly every day 8. Moving or speaking so slowly that other people could have noticed. Or the opposite - being so fidgety or restless that you have been moving around a lot more than usual: not at all 9. Thoughts that you would be better off or of hurting yourself in some way: not at all Total score: 14 Source: Developed by Drs. Andrés Arias, Dimple Hill, Dexter Richmond and colleagues, with an educational carol ann from [employer]. Thrive Questionnaire Date Thrive assessed: 02/02/24 I am a: Parent/Caregiver What is your living situation today?: I have a steady place to live Within the past 12 months, did the food you bought not last and you didn't have the money to get more?: Never true Within the past 12 months, did you worry whether your food would run out before you got money to buy more?: Never true Do you have trouble paying for medicines?: No Do you have trouble getting transportation to medical appointments?: No Do you have trouble paying your heating and electricity bill?: No Do you have trouble taking care of your child, family member or friend?: No Do you have trouble with day-to-day activities such as bathing, preparing meals, shopping, managing finances, etc.?: I choose not to answer this question Are you currently unemployed and looking for a job?: No Are you interested in more education?: I choose not to answer this question Please select the resources that you would like help with: None Currently or been in a relationship where the following occur: No concerns reported THRIVE Score: 0 AUDIT C Alcohol Use Questionnaire (AUDIT-C) 1. How often do you have a drink containing alcohol?: Never 3. How often do you have six or more drinks on one occasion?: Never Total Score: 0 AUTUMN-7 AMB Questionnaire AUTUMN-7 Date AUTUMN - 7 assessed: 02/02/24 Feeling nervous, anxious, or on edge: 0 = Not at all Not being able to stop or control worryin = Not at all Worrying too much about different things: 0 = Not at all Trouble relaxin = Not at all Being so restless that it is hard to sit still: 0 = Not at all Becoming easily annoyed or irritable: 0 = Not at all Feeling afraid as if something awful might happen: 0 = Not at all Total AUTUMN-7 score (0-4 normal; 5-9 mild; 10-14 moderate; 15-21 severe): 0 Source: Developed by Drs. Andrés Arias, Dimple Hill, Dexter Richmond and colleagues, with an educational carol ann from [employer]. Review of Systems Const Denies poor appetite and Denies weakness Eyes Denies no additional complaints ENT Reports Normal hearing present, Denies dizziness, Denies nasal congestion, Denies tinnitus and Denies sore throat Card Denies chest pain, Denies syncope, Denies rapid heart rate and Denies dyspnea Resp Denies cough and Denies dyspnea GI Denies change in stool character, Reports constipation, Denies diarrhea, Denies nausea and Denies vomiting Denies dysuria and Denies urinary frequency Neuro Reports Normal hearing present, Denies confusion, Denies dizziness, Denies syncope and Denies weakness Psych Denies confusion Physical exam (Primary Care) Vital Signs: Oxygen Delivery Method Room Air 02/02/24 08:42 BMI result Body Mass Index 48.0 Tobacco/Smoking Status: Tobacco use Status Tobacco use date assessed 07/30/23 07/30/23 08:06 Patient Tobacco Use Status Never used Tobacco 07/30/23 08:06 e-Cigarette/Vaping Use Never Used 07/30/23 08:06 Thrive Assessment: Date of Thrive Assessment Date Thrive assessed 01/27/24 01/27/24 00:44 Currently or been in a relationship where the following occur: No concerns reported Const General: No confusion Orientation/consciousness: No confusion HENMT Head: Yes normocephalic Ears: external ears normal and TM's normal bilaterally Face and sinus: Yes normal facial exam Mouth: moist mucous membranes Throat: Yes tonsils normal Eyes Conjunctivae: conjunctivae normal Pupils: Equal, round and reactive pupils present and Pupil accommodation reflex normal Direct Ophthalmoscopy: normal light reflex Neck Neck: No lymphadenopathy Thyroid: Thyroid normal Chest Chest palpation & inspection: normal inspection of the chest Resp Effort & Inspection: normal respiratory effort and no audible wheezes Auscultation: clear to auscultation bilaterally, no crackles, no wheezes and lung sounds not diminished Cardio Rate: regular rate Rhythm: regular rhythm Peripheral pulses: radial pulses present and dorsalis pedis present GI Palpation (GI): no masses Auscultation: normal bowel sounds and normoactive bowel sounds Rectal Exam - Male: Yes deferred Skin General skin exam: no rashes or lesions noted Rashes: no rashes Neuro General: No confusion Cranial nerves: Yes Equal, round and reactive pupils present and Yes Normal hearing present Cognition (Neuro): normal cognition Gait exam (Neuro): Normal gait present Motor exam (neuro): 5/5 motor strength present throughout Deep tendon reflexes (DTR's): Right brachioradialis reflex intensity grade: 2+, Left brachioradialis reflex intensity grade: 2+, Right patellar reflex intensity grade: 2+ and Left patellar reflex intensity grade: 2+ Extrem General: No edema Coding Level of Care Code Est Pt Prev Care 18-39y(42721) Diagnoses Annual physical exam Z00.00 Obesities, morbid E66.01 Impaired glucose tolerance R73.02 Hypertension I10 Fatty liver K76.0 Cerebral palsy G80.9 Obstructive sleep apnea G47.33 Assessment & Plan Assessment & Plan (1) Annual physical exam: Code(s): Z00.00 - Encounter for general adult medical examination without abnormal findings Category: Medical Plan: Patient is advised to eat healthy, keep well hydrated, keep active and have adequate sleep. (2) Obesities, morbid: Code(s): E66.01 - Morbid (severe) obesity due to excess calories Category: Medical Plan: Diet and exercise (3) Impaired glucose tolerance: Code(s): R73.02 - Impaired glucose tolerance (oral) Category: Medical Plan: Decrease the amount of carbohydrate intake, pasta, bread, rice and potatoes are all sugar and that is aside from all the sweet stuff, remember that fruits are good but they are Sweet also. (4) Hypertension: Code(s): I10 - Essential (primary) hypertension Category: Medical Plan: Continue with blood pressure medication. Decrease salt intake and exercise presently on hydrochlorothiazide 12.5 mg once a day (5) Fatty liver: Code(s): K76.0 - Fatty (change of) liver, not elsewhere classified Category: Medical Plan: Low-fat diet and exercise (6) Cerebral palsy: Code(s): G80.9 - Cerebral palsy, unspecified Category: Medical Plan: Stable (7) Obstructive sleep apnea: Comment: CPAP use Code(s): G47.33 - Obstructive sleep apnea (adult) (pediatric) Category: Medical Plan: Continue to use the CPAP more than 4 hours a night and benefits from this. Medications: Changed From semaglutide (weight loss) (Bebo) administer weeks 1 through 4 of therapy 0.25 mg (0.5 mL) subcut QWEEK 2 mL 0RF E66.01 - Morbid (severe) obesity due to excess calories To semaglutide (weight loss) administer weeks 1 through 4 of therapy 0.5 mg (0.5 mL) subcut QWEEK 30 days 2.5 mL 2RF E66.01 - Morbid (severe) obesity due to excess calories
== END 2024-02-02 09:15 | disposition home or self-care (01) ==
PROVIDERS: PCP Internal Medicine; Visit Provider Internal Medicine
DX: Z00.00 Encounter for general adult medical examination without abnormal findings (principal); E66.813 Obesity, class 3; G80.9 Cerebral palsy, unspecified; Z68.42 Body mass index [BMI] 45.0-49.9, adult; I10 Essential (primary) hypertension; K76.0 Fatty (change of) liver, not elsewhere classified; R73.02 Impaired glucose tolerance (oral); G47.33 Obstructive sleep apnea (adult) (pediatric); Z23 Encounter for immunization

== ENCOUNTER → 2024-02-02 08:13 | Outpatient (BNVA) | payer OTHER, MEDICAID, SELFPAY | PROVIDERS: PCP Internal Medicine; Visit Provider Internal Medicine | DX: Z00.01 Encounter for general adult medical examination with abnormal findings (principal); Z23 Encounter for immunization; E66.01 Morbid (severe) obesity due to excess calories; R73.02 Impaired glucose tolerance (oral); I10 Essential (primary) hypertension; K76.0 Fatty (change of) liver, not elsewhere classified; G80.9 Cerebral palsy, unspecified; G47.33 Obstructive sleep apnea (adult) (pediatric) | CPT/HCPCS: 90471; 90656; 96127 ==

== ENCOUNTER → 2024-05-27 08:10 | Outpatient (BNVA) | payer OTHER, SELFPAY | PROVIDERS: PCP Internal Medicine; Visit Provider Internal Medicine | DX: E66.01 Morbid (severe) obesity due to excess calories (principal); R73.02 Impaired glucose tolerance (oral); I10 Essential (primary) hypertension; G47.33 Obstructive sleep apnea (adult) (pediatric); G80.9 Cerebral palsy, unspecified; K76.0 Fatty (change of) liver, not elsewhere classified | CPT/HCPCS: 96127; 99212 ==

== ENCOUNTER 2024-07-16 08:27 | Outpatient (AMB) | payer OTHER, SELFPAY ==
--- OUTSIDE RECORDS SUMMARY | 2024-07-16 08:45 | XMS_ITS | Encounter Summary ---
Author Organization [facility] Address [address] [place] [address] Care Team Providers Care Fire Regulator Name Role Phone Unavailable Primary Care Provider Unavailabl e Encounter Details Date Type Department Care Team (Late st Contact Info) Description 11/14/2022 Dental Interim Note [facility] [address] [place] [address] Pamela Monsalve [address] [place], [place] [id number] Social History Tobacco Use Types Packs/Day Years Used Date Smoking Tobacco: Never Smokeless Tobacco: Never Social Connections Answer Date Recorded Social Connections and Isolation 0 07/28/2020 Financial Resource Strain Answer Date R ecorded Financial Resource Strain 0 2020 Stress Answer Date Recorded Stress 0 07/28/2020 Physical Activity Answer Date Recorded Physical Activity 0 07/28/2020 Food Insecurity Answer Date Recorded Food 0 07/28/2020 Transportation Needs Answer Date Record ed Transportation 0 07/28/2020 Housing Stability Answer Date Recorded Housing 0 07/28/2020 Safety and Environment Answer Date Lloyd rded Safety 0 07/28/2020 Utilities Answer Date Recorded Utilities 0 07/28/2020 Employment Answer Date Recorded Employment 0 07/28/2020 Sex and Gender Information Value Date Recorded Sex Assigned at Male 08/27/2021 7:20 AM PDT Legal Sex Male 12:08 PM PDT Gender Identity Male 08/27/2021 7:20 AM PDT Sexual Orientation Straight 08/27/2021 7: 20 AM PDT COVID-19 Exposure Response Date Recorded In the last 10 days, have yo u been in contact with someone who was confirmed or suspected to have Coronavirus/COVID-19? No / Unsure 10/31/2022 8:50 AM EDT documented as of this encounter Plan of Treatment Upcoming Encounters Date Type Department Care Team (Late st Contact Info) Description 08/26/2024 9:00 AM EDT Office Visit [facility] [address] [place] [address] Jennifer Denney [address] [place] [address] documented as of this encounter Visit Diagnoses Not on filedocumented in this encounter
--- OUTSIDE RECORDS SUMMARY | 2024-07-16 08:45 | XMS_ITS | Clinical Summary ---
Demographics Address [address] [place] [address] Home Phone Preferred Language en Marital Status Single Caodaism Affiliation Unknown Race Unknown Ethnic Group or Author Organization [facility] ity Address [address] [place] [address] Care Team Providers Care Health And Safety Trainer Name Role Phone Unavailable Primary Care Provider Unavailabl e Social History Tobacco Use Types Packs/Day Years Used Date Smoking Tobacco: Never Assessed Sex and Gender Information Value Date Recorded Sex Assigned at Not on file Legal Sex Male 11:38 PM EST Gender Identity Not on file Sexual Orientation Not on file Plan of Treatment Health Maintenance Due Date Last Done Comments DTaP,Tdap,and Td Vaccines (1 - Tdap) 07/15/2011 Hepatitis B Vaccines (1 of 3 - 19+ 3-dose series) 07/15/2011 COVID-19 Vaccine (2023-2 5 season) 2023 Influenza Vaccine (#1) 2023 HIB Vaccines Aged Out No longer eligi ble based on patient's age to complete this topic HPV Vaccines Aged Out No longer eligi ble based on patient's age to complete this topic Hepatitis A Vaccines Aged Out No long er eligible based on patient's age to complete this topic IPV Vaccines Aged Out No longer eligi ble based on patient's age to complete this topic MMR Vaccines Aged Out No longer eligi ble based on patient's age to complete this topic Meningococcal ACWY Vaccine Aged Out N o longer eligible based on patient's age to complete this topic Meningococcal B Vacine Aged Out No lo nger eligible based on patient's age to complete this topic Pneumococcal Vaccine: Pediat rics (0 to 5 Years) and At-Risk Patients (6 to 64 Years) Aged Out No longer eligible b ased on patient's age to complete this topic RSV Immunization Patients Un wendy 20 months Aged Out No longer eligible b ased on patient's age to complete this topic Varicella Vaccines Aged Out No longer eligible based on patient's age to complete this topic
--- OUTSIDE RECORDS SUMMARY | 2024-07-16 08:45 | XMS_ITS | Clinical Summary ---
Author Organization [facility] Address [address] [place] [address] Care Team Providers Care Network Admin Name Role Phone Unavailable Primary Care Provider Unavailabl e Source Comments PLEASE NOTE, if this patient is a minor, it may be UNLAWFUL to discuss sensitive information that is contained in these records (such as FAMILY PLANNING, MENTAL HEALTH or SUBSTANCE ABUSE) with the minor patient's parent or other person without the patient's specific authorization.[facility] Allergies No known active allergies Medications traZODone (DESYREL) 100 mg tablet Take by mouth nightly at bedtime Active fluoride, sodium, (SF 5000 PLUS) 1.1 % creaIndications :Caries of enamel (incipient) [place] twice daily with toothpaste then expectorate. Do not rinse. 51 g 3 3 Active Active Problems Problem Noted Date Diagnosed Date Fractured dental catholic with loss of materi al 02/25/2024 Immunizations Name Administration Dates Next Due Moderna COVID-19 Vaccine, re d cap blue label, 12+ Primary Series 04/24/2021,08/28/2020,07/28/2020 Social History Tobacco Use Types Packs/Day Years Used Date Smoking Tobacco: Never Passive Smoke Exposure: Never Smokeless Tobacco: Never Tobacco Cessation:Counseling Given: Not Answered Social Connections Answer Date Recorded Connectedness 0 01/15/2024 Financial Resource Strain Answer Date R ecorded Financial Resource Strain 0 2020 Stress Answer Date Recorded Stress 0 07/28/2020 Physical Activity Answer Date Recorded Physical Activity 0 07/28/2020 Food Insecurity Answer Date Recorded Food 0 01/22/2024 Transportation Needs Answer Date Record ed Transportation 0 07/28/2020 Housing Stability Answer Date Recorded Housing 0 07/28/2020 Safety and Environment Answer Date Lloyd rded Safety 0 07/28/2020 Utilities Answer Date Recorded Utilities 0 07/28/2020 Employment Answer Date Recorded Stress 0 01/15/2024 Sex and Gender Information Value Date Recorded Sex Assigned at Male 08/27/2021 7:20 AM PDT Legal Sex Male 12:08 PM PDT Gender Identity Male 08/27/2021 7:20 AM PDT Sexual Orientation Straight 08/27/2021 7: 20 AM PDT Last Filed Vital Signs Vital Sign Reading Time Taken Comments Blood Pressure 143/83 04/08/2024 9:00 AM EST Pulse 89 04/08/2024 9:00 AM EST Temperature - - Respiratory Rate - - Oxygen Saturation - - Inhaled Oxygen Concentration - - Weight - - Height - - Body Mass Index - - Plan of Treatment Upcoming Encounters Date Type Department Care Team (Late st Contact Info) Description 08/26/2024 9:00 AM EDT Office Visit [facility] [address] [place] [phone] Jennifer Denney Elvin [address] [place] [address] Health Maintenance Due Date Last Done Comments Hepatitis C Screening 1992 HIV Screening 07/15/2007 Medicare Annual Wellness Visit 2010 [id number] ( season) 2023 04/24/2021, 08/28/2020, 07/28/2020 Imm-Influenza (#1) 2023 03/12/2017, 12/24/2014 Alcohol and Drug Screen 04/28/2024 Depression Annual Screen 04/28/2024 Dental BW 02/26/2025 02/25/2024, 07/0 09/2022, 05/01/2022, Additional history exists Dental Examination 02/26/2025 02/25/2024, 0 10/31/2022, 05/01/2022, Additional history exists Dental Perio Charting 02/26/2025 02/25/2024 , 10/31/2022, 05/01/2022, Additional history exists Dental Prophy 02/26/2025 02/25/2024, 07/0 09/2022, 05/01/2022, Additional history exists Hypertension Screening (#1) 04/08/2025 Tobacco Screening 04/08/2025 04/08/2024 Imm-DTaP/Tdap/Td (9 - Td or Tdap) 06/03/2027 06/03/2017, 01/25/2011, 11/22/2004, Additional history exists Dental FMX/Pano 02/26/2029 02/25/2024 Imm-Hepatitis B Completed 09/17/1993, 03/29, 03/20/1993 Procedures Procedure Name Priority Date/Time Associated Diagnosis Comments COMP PERIODONTAL EVALUATION - NEW/EST PATIENT Routine 02/25/2024 10:00 AM EDT Fractured dental catholic with loss of material Chronic gingivitis, plaque induced INTRAORAL - COMP SERIES OF RADIOGRAPHIC IMAGES Routine 02/25/2024 10:00 AM EDT Chronic gingivitis, plaque induced Fractured dental catholic with loss of material PROPHYLAXIS - ADULT Routine 02/25/2024 1 0:00 AM EDT Fractured dental catholic with loss of material Chronic gingivitis, plaque induced PERIODIC ORAL EVALUATION ESTABLISHED PATIENT Routine 02/25/2024 10:00 AM EDT Fractured dental catholic with loss of material Chronic gingivitis, plaque induced from Last 3 Months or Most Recently Relevant to Health Maintenance [place] [facility]
--- NOTE | 2024-07-16 09:18 | MHC.OFFVISWM ---
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 [facility] Allergies No Known Allergies Allergy (Verified 07/16/24 09:18) Medication List - Last Reconciled 07/16/24 by Real Jasso MD blood pressure monitor (Blood Pressure Kit) As directed [CPAP full face mask medium pressure of 12 cm humidified air As directed] hydrochlorothiazide 12.5 mg PO DAILY ketoconazole 2% 1 appl topical 2XW trazodone 150 mg PO BEDTIME PRN triamcinolone acetonide 0.5% 1 appl topical BID HPI HPI 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 [facility]: Details: Start time: 9.06am, End time: 10.06am ?I spent 50 minutes speaking with the patient on the phone plus an additional 10 minutes reviewing and updating records for a total of 60 minutes HPI Comments Details: Previous weight loss efforts: Has tried through his PCP Shu up to 0.5mg/week without weight loss, Zepbound was then ordered but denied Wakes up: 6.30am, Sleeps: 12am Breakfast: 10.30am (scrambled eggs) Lunch: 12.30pm (sandwich) Dinner: 7pm (rice, meat, salad) Snacks: 3-4pm (donuts and cookies, sandwich), 10pm (same) Exercise: none Beverages: Coffee (2 cups/d with sugar), tea: none, soda: Gingerale and Pepsi daily, juice: Gatorade, ETOH: none PFSH Medical History (Updated 05/27/24 @ 08:41 by Panda Bansal MD) Blood pressure elevated without history of HTN LFT elevation Seizures Vitamin D deficiency Cerebral palsy Obstructive sleep apnea Surgical History Hx of adenoidectomy History of vasectomy Family History (Updated 02/02/24 @ 08:55 by Panda Bansal MD) Father Alcohol abuse Mother Uterine cancer Brother No problems noted. Maternal Grandfather No problems noted. Maternal Grandmother No problems noted. Paternal Grandmother Myocardial infarct Paternal Grandfather Myocardial infarct Social History (Updated 06/09/24 @ 10:22 by Annelise Feng CMA) Housing: Other Alcohol intake: never Patient Tobacco Use Status: Never used Tobacco e-Cigarette/Vaping Use: Never Used Second Hand Smoke Exposure: No service: No Current occupational status: employed Cognitive needs: Yes Hearing needs: No Vision needs: No Telehealth Telehealth Telehealth Platform: Telephone Location of provider rendering services: practice address Location of patient: address on file Patient Identification confirmed using: Name, : Yes Telehealth method: voice only Patient verbally consented to treatment: Yes Patient verbally consented to billing insurance company: Yes Patient informed of any privacy concerns related to visit: Yes Minutes spent on Phone/Video with Pt.: 60 Assessment & Plan Assessment & Plan (1) Morbid obesity due to excess calories: Code(s): E66.01 - Morbid (severe) obesity due to excess calories Category: Medical Plan: 1.? Nutritional counseling. Start with one premade PREMIER (buy at [employer], [employer], [employer], [facility]) shake (4oz PREMIER with 4oz low fat unsweetened almond milk each) at 8am-10am, 2 Fit Crunch protein bar (buy at [employer]) at 11am-1pm and 2pm-4pm, dinner at 5pm (12 forks of protein and 12 forks of salad/vegetables), another PREMIER premade shake (mix 4oz of the shake with 4oz almond milk) at 7pm-9pm AND one more [employer] Crunch protein bar at 10pm to midnight So you do 2 protein shakes, 3 protein bars and one meal per day. 2. Meal to include lean meat (beef, fish, pork, turkey, chicken), or uruguayan yogurt, or egg whites, or beans with a salad with olive oil and fruits (berries, pears, apples, kiwi). Avoid salt, breads, potatoes, rice, pasta, desserts. 3. Each shake would be drunk slowly, like coffee in a period of 2 hours. 4. Cut each bar in 4 pieces and eat each piece in 30min ?to make each bar last 2 hours. 5. I emphasized the importance of measuring accurately the food portion and measure it when serving the food in plate 6. The meal portions include 12 full-size forks of meat and 12 full-size forks of salad. You always eat the meat portion but you can replace up to 6 forks for salad/vegetables with rice, potatoes or pasta, or a fruit ?if you like. The less you do it the better weight loss will be. 7. One full-size fork is what it can be scooped on the fork without falling aside and not what can be bit with the fork. Use regular forks like those you find in a typical restaurant. 8.? Please buy the body composition scale we discussed and send me weight measurements as soon as possible and then once a week. Always include your diet and exercise plan. 9. The best choice would be to purchase a stationary bike at home that can track calories. Let me know if you do so I can give you an exercise plan. 10. Goal is to lose at least 1.5-2lbs per week 11. Goal to lose at least 10% of your weight, which is about 30lbs. Minimum weight goal: 277lbs 12. Please follow the diet plan exactly without any change. If you don't like something about the plan or you feel hungry you need to communicate with me so I can help you revise the plan. You should not change the plan yourself 13 Re-start the Wegovy when you get your body composition scale once a week. The patient has glucose intolerance, liver steatosis, sleep apnea on CPAP and hypertension as diagnosed by his PCP. Wegovy was approved and used before by his PCP but not at full dose (only up to 0.5mg/wk). Therefore today I prescribed the 1mg/week dose of Wegovy. We discussed the potential side effects of Wegovy such as nausea, vomiting, abdominal pain, diarrhea and constipation and you will need to contact me if any of these symptoms occur or for any other new symptom you may experience. Medications: New semaglutide (weight loss) (Wegovy) 1 mg (0.5 mL) subcut Q7D 2 mL 0RF E66.01 - Morbid (severe) obesity due to excess calories, G47.33 - Obstructive sleep apnea (adult) (pediatric), I10 - Essential (primary) hypertension, K76.0 - Fatty (change of) liver, not elsewhere classified, R73.02 - Impaired glucose tolerance (oral)
[2024-07-16 09:53] VITALS: BMI 48.1
== END 2024-07-16 10:06 | disposition home or self-care (01) ==
LOC: HO.HBS 08:27
PROVIDERS: PCP Internal Medicine; Visit Provider Surgery
DX: E66.01 Morbid (severe) obesity due to excess calories (principal)
CPT/HCPCS: 99205

== ENCOUNTER 2024-09-03 08:05 | Outpatient (AMB) | payer OTHER, SELFPAY ==
--- OUTSIDE RECORDS SUMMARY | 2024-09-03 08:07 | XMS_ITS | Clinical Summary ---
Demographics Address [address] [place] [address] Home Phone Preferred Language en Marital Status Single Pentecostalism Affiliation Unknown Race Unknown Ethnic Group or Author Organization [facility] ity Address [address] [place] [address] Care Team Providers Care Electron Gun Inspector Name Role Phone Unavailable Primary Care Provider [...] Vaccine (2023-2 5 season) 2023 Influenza Vaccine (Season Ended) 2024 HIB Vaccines Aged Out No longer eligi [...] age to complete this topic Meningococcal B Vaccine Aged Out No l onger eligible based on patient's age to complete [...]
--- OUTSIDE RECORDS SUMMARY | 2024-09-03 08:07 | XMS_ITS | Clinical Summary ---
Author Organization [facility] Address [address] [place] [address] Care Team Providers Care Roofing Superintendent Name Role Phone Unavailable Primary Care Provider [...] 1.1 % creaIndications :Caries of enamel (incipient) [place] twice daily with toothpaste then expectorate. Do not rinse. 51 g 3 3 Active Active Problems Problem Noted Date Diagnosed Date Fractured dental muslim with loss of materi al 02/25/2024 Immunizations Immunization Administration Dates Next Due Moderna COVID-19 Vaccine, [...] Care Team (Late st Contact Info) Description 09/15/2024 9:40 AM EDT Office Visit [facility] [address] [place] [phone] Jennifer Denney Elvin [address] [place] [address] Health Maintenance Due Date Last Done Comments Anxiety Screening 1992 Hepatitis C Screening 1992 HIV Screening 07/15/2007 Medicare Annual Wellness Visit 2010 [id number] ( season) 2023 04/24/2021, 08/28/2020, 07/28/2020 Imm-Influenza [...] Routine 02/25/2024 10:00 AM EDT Fractured dental muslim with loss of material Chronic gingivitis, plaque induced INTRAORAL - COMP SERIES OF RADIOGRAPHIC IMAGES Routine 02/25/2024 10:00 AM EDT Chronic gingivitis, plaque induced Fractured dental muslim with loss of material PROPHYLAXIS - ADULT Routine 02/25/2024 1 0:00 AM EDT Fractured dental muslim with loss of material Chronic gingivitis, plaque induced PERIODIC ORAL EVALUATION ESTABLISHED PATIENT Routine 02/25/2024 10:00 AM EDT Fractured dental muslim with loss of material Chronic gingivitis, plaque induced from Last 3 Months or Most Recently Relevant to Health Maintenance [place] [facility] [place]
--- NOTE | 2024-09-03 08:08 | A.OFFPC_ITS ---
Vital Signs 09/03/24 08:09 Height 5 ft 7 in Weight 295 lb BMI 46.2 BP 124/62 Blood Pressure Location Rt brachial Position Sitting Pulse 93 Pulse Source Pulse Oximeter Pulse Oximetry (%) 97 Oxygen Delivery Method Room Air Intake Visit Reasons: 3mth f/u Allergies No Known Allergies Allergy (Verified 09/03/24 08:09) Medication List - Last Reconciled 09/03/24 by Panda Bansal MD blood pressure monitor (Blood Pressure Kit) As directed [CPAP full face mask medium pressure of 12 cm humidified air As directed] hydrochlorothiazide 12.5 mg PO DAILY ketoconazole 2% 1 appl topical 2XW tirzepatide (weight loss) (Zepbound) 5 mg (0.5 mL) subcut QWEEK trazodone 150 mg PO BEDTIME PRN triamcinolone acetonide 0.5% 1 appl topical BID Tobacco use date assessed: 05/27/24 Dental Screening Dental Screen Date: 05/27/24 [facility] Medical History (Updated 05/27/24 @ 08:41 by Panda Bansal MD) Blood pressure elevated without history of HTN LFT elevation Seizures Vitamin D deficiency Cerebral palsy Obstructive sleep apnea Surgical History Hx of adenoidectomy History of vasectomy Family History (Updated 02/02/24 @ 08:55 by Panda Bansal MD) Father Alcohol abuse Mother Uterine cancer Brother No problems noted. Maternal Grandfather No problems noted. Maternal Grandmother No problems noted. Paternal Grandmother Myocardial infarct Paternal Grandfather Myocardial infarct Social History (Updated 06/09/24 @ 10:22 by Annelise Feng CMA) Housing: Other Alcohol intake: never Patient Tobacco Use Status: Never used Tobacco e-Cigarette/Vaping Use: Never Used Second Hand Smoke Exposure: No service: No Current occupational status: employed Cognitive needs: Yes Hearing needs: No Vision needs: No Questionnaire PHQ-9 Over the last 2 weeks, how often have you been bothered by any of the following problems? 1. Little interest or pleasure in doing things: nearly every day 2. Feeling down, depressed, or hopeless: not at all 3. Trouble falling or staying asleep, or sleeping too much: not at all 4. Feeling tired or having little energy: not at all 5. Poor appetite or overeating: not at all 6. Feeling bad about yourself - or that you are a failure or have let yourself or your family down: not at all 7. Trouble concentrating on things, such as reading the newspaper or watching television: not at all 8. Moving or speaking so slowly that other people could have noticed. Or the opposite - being so fidgety or restless that you have been moving around a lot more than usual: not at all 9. Thoughts that you would be better off or of hurting yourself in some way: not at all Total score: 3 Source: Developed by Drs. Andrés Arias, Dimple Hill, Dexter Richmond and colleagues, with an educational carol ann from [employer]. Thrive Questionnaire Date Thrive assessed: 08/27/24 I am a: Parent/Caregiver What is your living situation today?: I have a steady place to live Within the past 12 months, did the food you bought not last and you didn't have the money to get more?: Never true Within the past 12 months, did you worry whether your food would run out before you got money to buy more?: Never true Do you have trouble paying for medicines?: No Do you have trouble getting transportation to medical appointments?: No Do you have trouble paying your heating and electricity bill?: No Do you have trouble taking care of your child, family member or friend?: No Do you have trouble with day-to-day activities such as bathing, preparing meals, shopping, managing finances, etc.?: I choose not to answer this question Are you currently unemployed and looking for a job?: No Are you interested in more education?: I choose not to answer this question Please select the resources that you would like help with: None Currently or been in a relationship where the following occur: No concerns reported THRIVE Score: 0 AUDIT C Alcohol Use Questionnaire (AUDIT-C) 1. How often do you have a drink containing alcohol?: Never 2. How many drinks containing alcohol do you have on a typical day when you are drinking?: 1 or 2 3. How often do you have six or more drinks on one occasion?: Never Total Score: 0 AUTUMN-7 AMB Questionnaire AUTUMN-7 Date AUTUMN - 7 assessed: 05/27/24 Feeling nervous, anxious, or on edge: 1 = Several days Not being able to stop or control worryin = More than half the days Worrying too much about different things: 0 = Not at all Trouble relaxin = Not at all Being so restless that it is hard to sit still: 0 = Not at all Becoming easily annoyed or irritable: 2 = More than half the days Feeling afraid as if something awful might happen: 0 = Not at all Total AUTUMN-7 score (0-4 normal; 5-9 mild; 10-14 moderate; 15-21 severe): 5 Source: Developed by Drs. Andrés Arias, Dimple Hill, Dexter Richmond and colleagues, with an educational carol ann from [employer]. Physical exam (Primary Care) Vital Signs: Last Vital Signs Pulse 93 09/03/24 08:09 BP 124/62 09/03/24 08:09 Pulse Ox 97 09/03/24 08:09 Oxygen Delivery Method Room Air 09/03/24 08:09 BMI result Body Mass Index 46.2 Tobacco/Smoking Status: Tobacco use Status Tobacco use date assessed 05/27/24 09/03/24 08:14 Patient Tobacco Use Status Never used Tobacco 09/03/24 08:14 Tobacco use type Cigarette 09/03/24 08:14 e-Cigarette/Vaping Use Never Used 09/03/24 08:14 PHQ-9: PHQ-9 Score PHQ-9: Total score 3 09/03/24 08:14 Thrive Assessment: Date of Thrive Assessment Date Thrive assessed 08/27/24 09/03/24 08:14 Currently or been in a relationship where the following occur: No concerns reported Const General: alert; No acute distress Eyes Conjunctivae: conjunctivae normal Resp Auscultation: clear to auscultation bilaterally Cardio Rate: regular rate Rhythm: regular rhythm GI Inspection: Yes normal to inspection Extrem General: Yes normal to inspection and No edema Coding Level of Care Code Est Pt Level 4 (34752) Complex EM visit Add On G2211 Diagnoses Morbid obesity due to excess calories E66.01 Hypertension I10 Impaired glucose tolerance R73.02 Fatty liver K76.0 Obstructive sleep apnea G47.33 Cerebral palsy G80.9 Assessment & Plan Assessment & Plan (1) Morbid obesity due to excess calories: Code(s): E66.01 - Morbid (severe) obesity due to excess calories Category: Medical Plan: Patient has been to the weight management and portion sizes of diet and started on Zepbound. (2) Hypertension: Code(s): I10 - Essential (primary) hypertension Category: Medical Plan: Continue with blood pressure medication. Decrease salt intake and exercise controlled on hydrochlorothiazide. (3) Impaired glucose tolerance: Code(s): R73.02 - Impaired glucose tolerance (oral) Category: Medical Plan: Decrease the amount of carbohydrate intake, pasta, bread, rice and potatoes are all sugar and that is aside from all the sweet stuff, remember that fruits are good but they are Sweet also. (4) Fatty liver: Code(s): K76.0 - Fatty (change of) liver, not elsewhere classified Category: Medical Plan: Low-fat diet and exercise (5) Obstructive sleep apnea: Comment: CPAP use Code(s): G47.33 - Obstructive sleep apnea (adult) (pediatric) Category: Medical Plan: Continue with the use of CPAP more than 4 hours a night and benefits from this (6) Cerebral palsy: Code(s): G80.9 - Cerebral palsy, unspecified Category: Medical Plan History of Present Illness The patient is a 34-year-old male presenting with concerns related to weight management amidst his health conditions, including obstructive sleep apnea, cerebral palsy, fatty liver, impaired glucose tolerance, and essential hypertension. Since the previous consultation on May 27, the patient has pursued weight loss treatments, resulting in a 12-pound reduction following initiation on Wegovy. Despite this progress, he maintains some apprehensions regarding his long-term weight control efforts. Blood pressure management continues with hydrochlorothiazide, and sleep care includes CPAP usage and trazodone. Recent blood work from December last year provided insights into his health status, with attention to a low-fat diet and exercise to mitigate diabetes risks. Amid medication adjustments, the patient is currently taking 5 mg of Zepbound, finding it beneficial in moderating his appetite and maintaining weight loss, while occasional tiredness is the only reported issue which he links to the treatment, without other side effects like nausea or heartburn. Discussions briefly touched on the prospect of surgery; however, priority remains on the current plan's effectiveness, delaying surgical intervention consideration. Health Maintenance - Initiated nutritional counseling and implemented a weight management program - Regular use of CPAP for sleep apnea management - Compliance with a low-fat diet and routine exercise for diabetes and cardiovascular risk reduction - Blood pressure management with hydrochlorothiazide - Last complete blood work conducted in December when noted within normal parameters - Ongoing monitoring of weight management via Wegovy, currently at 5 mg Social History - Regular exercise as part of weight management plan - Low-fat diet consumption as per diabetes management strategy Review of Systems - General: Reports weight loss of 12 pounds - Respiratory: Denies CPAP non-compliance - Gastrointestinal: Denies symptoms of nausea or heartburn - Neurological: Reports occasional tiredness - Psychological: Denies sleep disturbances with trazodone use Physical Exam Results - Labs: Last blood work conducted in December of the previous year, results within normal limits Plan The current plan includes continuing the weight management approach primarily with the use of Zepbound at 5 mg, recognizing its success in aiding weight loss and controlling appetite. The patient's hypertension remains managed with hydrochlorothiazide, while the continued application of CPAP supports his obstructive sleep apnea management effectively. Nutritional guidance and ph ysical activity play crucial roles in addressing weight and metabolic concerns, aiming for further decrease in weight. Surgical weight loss methods are deferred, prioritizing non-surgical efficacy. Review and analysis of clinical parameters through future blood tests will aid in evaluating ongoing health status and guide subsequent intervals of care adjustment. Patient was informed and verbally consented to the use of an ambient scribe for clinic note documentation during this visit. Discussion Notes In our discussion, we reviewed the patient's progress in weight management, successfully achieving a 12-pound loss attributed to the current therapeutic regimen. I outlined the effects and objectives of Zepbound as crucial, permitting effective appetite moderation while documenting any potential tiredness. He accepted maintaining current dosing unless intolerance arises. We emphasized avoiding surgical avenues at present, instead stressing adherence to medication and lifestyle modifications. Expected outcomes, risks, and the necessity of patient cooperation for ultimate success were discussed clearly. Follow-up measures to assess the progress and evaluate additional lab work are planned, with a reminder to focus on long-term health improvement strategies. Continued support for CPAP and its efficacy in his care was affirmed, while the trajectory of hypertension and diabetic risk warranted continuous contemplation and monitoring. Patient Instructions - Continue taking your medications as prescribed, including Zepbound and hydrochlorothiazide. - Use your CPAP machine regularly for at least 4 hours each night to help with your sleep apnea. - Stick to your low-fat diet and incorporate regular exercise as part of your weight management plan. - Report any ongoing symptoms like persistent nausea or excessive tiredness to our office. - Maintain adequate hydration; remember to drink sufficient water daily. - Be cautious about surgical weight loss procedures; continue with your current weight management strategy. - Prepare for upcoming blood work and health reviews as scheduled. - Reach out if there are changes in symptoms or concerns about your treatment options. - Follow safety precautions in your daily routines and keep up with lifestyle habits. Medications: Discontinued semaglutide (weight loss) (Wegovy) Discontinued Reason: Doctor's Order 1 mg (0.5 mL) subcut Q7D 2 mL 0RF E66.01 - Morbid (severe) obesity due to excess calories, G47.33 - Obstructive sleep apnea (adult) (pediatric), I10 - Essential (primary) hypertension, K76.0 - Fatty (change of) liver, not elsewhere classified, R73.02 - Impaired glucose tolerance (oral) tirzepatide (weight loss) (Zepbound) for 4 weeks Discontinued Reason: Patient Completed Course 2.5 mg (0.5 mL) subcut QWEEK 2 mL 0RF E66.01 - Morbid (severe) obesity due to excess calories
[2024-09-03 08:09] VITALS: BP 124/62; PULSE 93; O2SAT 97; BMI 46.2
== END 2024-09-03 08:54 | disposition home or self-care (01) ==
LOC: HO.HMCH 08:06
PROVIDERS: PCP Internal Medicine; Visit Provider Internal Medicine
DX: I10 Essential (primary) hypertension (principal); E66.01 Morbid (severe) obesity due to excess calories; G80.9 Cerebral palsy, unspecified; Z68.42 Body mass index [BMI] 45.0-49.9, adult; R73.02 Impaired glucose tolerance (oral); K76.0 Fatty (change of) liver, not elsewhere classified; G47.33 Obstructive sleep apnea (adult) (pediatric)

== ENCOUNTER → 2024-09-03 08:05 | Outpatient (BNVA) | payer OTHER, SELFPAY | PROVIDERS: PCP Internal Medicine; Visit Provider Internal Medicine | DX: I10 Essential (primary) hypertension (principal); E66.01 Morbid (severe) obesity due to excess calories; R73.02 Impaired glucose tolerance (oral); K76.0 Fatty (change of) liver, not elsewhere classified; G47.33 Obstructive sleep apnea (adult) (pediatric); G80.9 Cerebral palsy, unspecified; Z99.89 Dependence on other enabling machines and devices; Z79.899 Other long term (current) drug therapy | CPT/HCPCS: 96127; 99212 ==

== ENCOUNTER 2024-09-22 10:10 | Outpatient (AMB) | payer OTHER, SELFPAY ==
--- NOTE | 2024-09-22 10:05 | MHC.WMTHER ---
Intake Intake Visit Reasons: VIDEO BH Intake Allergies No Known Allergies Allergy (Verified 09/03/24 08:09) [facility] Medical History (Updated 05/27/24 @ 08:41 by Panda Bansal MD) Blood pressure elevated without history of HTN LFT elevation Seizures Vitamin D deficiency Cerebral palsy Obstructive sleep apnea Surgical History Hx of adenoidectomy History of vasectomy Family History (Updated 02/02/24 @ 08:55 by Panda Bansal MD) Father Alcohol abuse Mother Uterine cancer Brother No problems noted. Maternal Grandfather No problems noted. Maternal Grandmother No problems noted. Paternal Grandmother Myocardial infarct Paternal Grandfather Myocardial infarct Social History (Updated 06/09/24 @ 10:22 by Annelise Feng [facility]) Housing: Other Alcohol intake: never Patient Tobacco Use Status: Never used Tobacco e-Cigarette/Vaping Use: Never Used Second Hand Smoke Exposure: No service: No Current occupational status: employed Cognitive needs: Yes Hearing needs: No Vision needs: No Behavioral Health Assessment Weight Management Therapy Therapy Notes Details The patient is a 34-year-old male who presents with his mother for an initial behavioral health visit to complete assessment as part of the Surgical Weight Loss Program. He was referred by his primary care provider after insurance denied coverage for weight loss medication, prompting the family to explore other options. He began the program at 307 lbs, with a target of losing at least 10% of his body weight (approximately 30 lbs). His most recent weight, as of today, is 286 lbs. The recommended meal plan includes two protein shakes, three protein bars, and one solid meal per day. However, the patient is not following the plan as directed. He is currently eating two full meals per day. His mother assists by measuring portions, but he often asks for more food when still hungry. She reports that attempts to restrict his intake can lead to defensiveness and anger, and he has a history of becoming physically aggressive when he feels pressured. He is currently not engaging in any physical activity, although he has access to a stationary bike at home. A home scale is available. The patient has a complex medical and developmental history, including seizure disorder since age 4, cerebral palsy, developmental delay, and an IQ estimated at 40%. His mother is his provider service representative payee. He is currently prescribed Trazodone for insomnia. He has been involved in mental health treatment since childhood and previously received services through [facility]. During high school, he experienced multiple mental health crises and was referred to Intensive Home Treatment. He has remained psychiatrically stable since his early 20s and is not currently in counseling. There is no history of psychiatric hospitalization. At this time, the patient is not a suitable candidate for surgical weight loss due to significant difficulty adhering to the required meal and exercise plans, and a documented history of physical aggression when under pressure. Ongoing behavioral and nutritional support, as well as further evaluation for program readiness, are recommended. Presenting Concerns Referral Source WMP-Provider. Reason for referral Completion of behavioral health assessment as part of process for weight-loss surgery. Precipitating Event Obesity. Living Situation Current Living Situation Rent At risk of losing current housing? No Satisfied with current living situation? Yes Comments PT lives with his mother. They live in a multifamily home, in the first floor is his brother with his family, who is the court administrator, they rent the 2nd floor and in the 3rd floor is his maternal grandmother. Food/Weight/Diet Expectations of change PT started the program at 307 lbs, and the most recent weight as of today was 286 lbs. The initial Goal was to lose at least 10% of his weight, which is about 30 lbs. Minimum weight goal: 277lbs. Meal plan: 2 protein shakes, 3 protein bars, and one meal per day. But not following, he is doing 2 at day at 2 meals a day. His mom will measure his food but he will repeat if hungry. Mom states that they can't force him to not have more food, otherwise he can become defensive and angry. Exercise: None - Has a stationary bike. Scale: Yes Communication with provider: Yes, Wednesdays. History/Relationship with food The patient?s mother reports that he does not follow a consistent meal schedule. He frequently eats at his brother?s home, where his food intake is less regulated and often includes larger portions than recommended. Typical Daily Intake: Breakfast: Often skipped. Lunch: Usually consists of rice, beans, and meat, or occasionally a sandwich. Dinner: Frequently consists of takeout, including Afghan food, tacos, or burgers. Snacks: Not specified, but reportedly includes frequent snacking. Beverages: 2?3 regular Gatorades per day [place] juice (quantity not specified) One 12 oz cup of coffee daily 3?4 cans of regular soda per day The patient?s mother notes difficulty in limiting his intake, particularly when he requests additional food. History/Relationship with weight PT was skinny in childhood. He started gaining weight at the end of high school. In the last 10 years, the lowest has been his recent weight, 286Lbs and highest was over 300 lbs. History/Relationship with dieting Weight loss medication, started about 2 months ago. Binge Eating Do you frequently eat large amounts of food in short periods of time, not feeling physically hungry? Yes Do you eat large amounts of food rapidly and typically alone? Yes Night Eating Do you have little or no appetite in the morning and feel very hungry in the evening, often overeating between dinner and when you go to bed? Yes Social History Family history and relationship Frantz was raised by his mother, he has a younger sibling who is 28 years old. PT is single, never , and has no children. 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 Developmental history and status PT has been diagnosed with seizures since age 4, cerebral palsy, IQ 40%, and developmental delay. His mother is his rep payee. Social support Mother, brother, [id number]. Community support [facility] Episcopalian/Spirituality Protestant. Cultural/Ethnic information PT was born in [place]. They moved to [place] in 1997 after his proofer black and white recommended. Legal Involvement and History Current or historical involvement with the legal system? None reported. Education Highest grade completed 12 grade. Graduated High school with a life skills program. Preferred learning style Visual Currently enrolled in educational program? No Interested in further educational program? No Employment Employment Status [employer] ([employer] D[employer], program call viability. In a [employer]. ) Wants help to find employment? No Meaningful activities Vide games, listen to music, watch movies, and watch wrestling. Financial Situation Describe current financial situation Comfortable Financial assistance? SSI and SSDI Service Service? No Mental Health and Addiction Treatment Current/Past substance abuse? No Comments Alcohol: Coquito or Ponche in the holidays. Cigarettes/Tobacco: None Cannabis/Edibles: None Current/Past addictive behavior concerns? No Psychiatric history The patient is currently prescribed Trazodone for insomnia. He has been involved in mental health treatment since childhood and previously received services through [facility]. During high school, she experienced multiple mental health crises and was subsequently referred to Intensive Home Treatment (IHT) The patient has remained psychiatrically stable since his early 20s and is not currently engaged in counseling. He has never been hospitalized for mental health reasons. Medical and Physical Health Summary Physical exam in the last year? Yes Pain Screening Current pain? No Pain in the last few months? No Medications Is the patient compliant with medications? Yes (But needs reminders.) Does the patient have Britt Guardian in place? Not applicable Does the patient use complimentary health approaches? No Trauma/Abuse History History of trauma? No Questionnaires PHQ-9 Over the last 2 weeks, how often have you been bothered by any of the following problems? Depression Screening Interpretation: Positive (PT was unable to complete PHQ-9) Depression Screening Done: Yes Source: Developed by Drs. Andrés Arias, Dimple Hill, Dexter Richmond and colleagues, with an educational carol ann from [employer]. Binge Eating Scale Binge Eating Score: 0 (PT unable to complete BES) Score less than 17 Minimal Risk Score between 18-26 Moderate Risk Score between 27-46 High Risk Assessment & Plan Assessment & Plan (1) Neurodevelopmental disorder: Code(s): F89 - Unspecified disorder of psychological development (2) Pre-bariatric surgery psychological evaluation: Code(s): Z71.89 - Other specified counseling Plan The patient is not a suitable candidate for surgical weight loss at this time due to cognitive impairments, limited adherence to diet and exercise plans, and a history of aggression when feeling pressured. Continued behavioral and nutritional support is recommended, and the medical weight loss program may be a more appropriate option for him at this stage. He is expected to return in approximately 6 weeks for follow-up support. Next appointment: 11/03/2024 at 10:00 AM (video visit). Telehealth Telehealth Telehealth Platform: [facility] Location of provider rendering services: other Location of patient: address on file Patient Identification confirmed using: Name, : Yes Telehealth method: video Patient verbally consented to treatment: Yes Patient verbally consented to billing insurance company: Yes Patient informed of any privacy concerns related to visit: Yes Minutes spent on Phone/Video with Pt.: 60 (Mother present at Patient's request. ) Coding Level of Care Code New Pt Tele Psy Diag Eval (84474) Patient Type New Diagnoses Neurodevelopmental disorder F89 Pre-bariatric surgery psychological evaluation Z71.89 Time Spent (min) 60
--- OUTSIDE RECORDS SUMMARY | 2024-09-22 11:10 | XMS_ITS | Encounter Summary ---
Author Organization [facility] Address [address] [place] [address] Care Team Providers Care Textile Conservator Name Role Phone Unavailable Primary Care Provider Unavailabl e Encounter Details Date Type Department Care Team (Late st Contact Info) Description 11/14/2022 Dental Interim Note [facility] [address] [place] [phone] Pamela Monsalve [address] [place], [place] [id number] Social History Tobacco Use Types Packs/Day Years [...] Care Team (Late st Contact Info) Description 09/29/2024 10:20 AM EDT Office Visit [facility] [place] [phone] Yasemin Lizarraga DDS [address] [place] [address] 03/23/2025 10:20 AM EST Office Visit [facility] [place] [phone] Jennifer Denney [address] [place] [address] documented as of this encounter Visit Diagnoses Not on filedocumented in this encounter
== END 2024-09-22 11:07 | disposition home or self-care (01) ==
LOC: HO.HBST 10:10
PROVIDERS: PCP Internal Medicine; Visit Provider Counselor Mental Health
DX: F89 Unspecified disorder of psychological development (principal); Z71.89 Other specified counseling
CPT/HCPCS: 90791

== ENCOUNTER 2024-11-03 10:20 | Outpatient (AMB) | payer OTHER, SELFPAY ==
--- NOTE | 2024-11-03 10:15 | MHC.WMTHER ---
Intake Intake Visit Reasons: VIDEO BH F/U Allergies No Known Allergies Allergy (Verified 09/03/24 08:09) [facility] Medical History (Updated 05/27/24 @ 08:41 by Panda Bansal MD) Blood pressure elevated without history of HTN LFT elevation Seizures Vitamin D deficiency Cerebral palsy Obstructive sleep apnea Surgical History Hx of adenoidectomy History of vasectomy Family History (Updated 02/02/24 @ 08:55 by Panda Bansal MD) Father Alcohol abuse Mother Uterine cancer Brother No problems noted. Maternal Grandfather No problems noted. Maternal Grandmother No problems noted. Paternal Grandmother Myocardial infarct Paternal Grandfather Myocardial infarct Social History (Updated 06/09/24 @ 10:22 by Annelise Feng [facility]) Housing: Other Alcohol intake: never Patient Tobacco Use Status: Never used Tobacco e-Cigarette/Vaping Use: Never Used Second Hand Smoke Exposure: No service: No Current occupational status: employed Cognitive needs: Yes Hearing needs: No Vision needs: No Behavioral Health Assessment Weight Management Therapy Therapy Notes Details Patient presented for a behavioral health follow-up via Telehealth, accompanied by his mother. Weight as of 11/03/2024: 286.4 lbs ? no weight loss since the previous visit. The patient remains on Zepbound and denies any side effects. He reports reduced hunger, which has led to eating less overall; however, he acknowledges that his dietary habits and food choices have not meaningfully improved. During the session, the patient became defensive and argumentative when his mother attempted to correct him, demonstrating limited emotional regulation in response to perceived criticism. He appeared disengaged and required frequent prompting and support from his mother to remain engaged in the discussion. Both the patient and his mother reported no significant changes since the last visit. Behavioral modification strategies were suggested for implementation at home, though their receptiveness to these interventions appeared limited. The patient also showed minimal motivation to change his behaviors related to physical activity or dietary variety. From a behavioral health perspective, the patient is not currently an appropriate candidate for surgical weight loss due to limited readiness, cognitive and emotional factors, and lack of behavioral follow-through. A medical weight loss (MWL) program may be more appropriate at this stage. Presenting Concerns Referral Source WMP-Provider. Reason for referral Completion of behavioral health assessment as part of process for weight-loss surgery. Precipitating Event Obesity. Living Situation Current Living Situation Rent At risk of losing current housing? No Satisfied with current living situation? Yes Comments PT lives with his mother. They live in a multifamily home, in the first floor is his brother with his family, who is the van owner operator, they rent the 2nd floor and in the 3rd floor is his maternal grandmother. Food/Weight/Diet Expectations of change PT started the program at 307 lbs, and the most recent weight as of today was 286 lbs. The initial Goal was to lose at least 10% of his weight, which is about 30 lbs. Minimum weight goal: 277lbs. Weight as of today 11/03/2024: 286.4Lbs. - No weight loss since last visit. PT using Zepbound denies any side effects. PT reports feeling less hungry overall, leading him to eat less, However he has not changed eating habits/choices. Meal plan: None. Exercise: None - Has a stationary bike. Scale: Yes Communication with provider: Yes, Wednesdays. History/Relationship with food PT reports he has been less hungry since been on Zepbund and eating smaller portions but not doing meal plan provided also noticing he is not snacking. Example of meals yesterday: Breakfast: skipped. Lunch: @12:30pm - Rice with beans, chicken, tostones. Dinner: mashed Potatoes with butter, broiled meat with onions. Snacks: None. Beverages: Water: 2 bottles at day. 1 cup -[place] juice. 1 cup of coffee with sugar and 5 creams. History/Relationship with weight PT was skinny in childhood. He started gaining weight at the end of high school. In the last 10 years, the lowest has been his recent weight, 286Lbs and highest was over 300 lbs. History/Relationship with dieting Weight loss medication, started about 2 months ago. Binge Eating Do you frequently eat large amounts of food in short periods of time, not feeling physically hungry? No Do you feel out of control when you eat a large amount of food in a short period of time? No Do you eat large amounts of food rapidly and typically alone? No Night Eating Do you wake up at least once during the night to eat? No If you wake up in the night, do you find that it is necessary to eat something in order to fall back asleep? No Do you have little or no appetite in the morning and feel very hungry in the evening, often overeating between dinner and when you go to bed? Yes Social History Family history and relationship Frantz was raised by his mother, he has a younger sibling who is 28 years old. PT is single, never , and has no children. Parental/Familial barman obligations None. Developmental history and status PT has been diagnosed with seizures since age 4, cerebral palsy, IQ 40%, and developmental delay. His mother is his rep payee. Social support Mother, brother, [id number]. Community support S Caodaism/Spirituality Holiness. Cultural/Ethnic information PT was born in [place]. They moved to [place] in 1997 after his sample weaver recommended. Legal Involvement and History Current or historical involvement with the legal system? None reported. Education Highest grade completed 12 grade. Graduated High school with a life skills program. Preferred learning style Visual Currently enrolled in educational program? No Interested in further educational program? 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 ) Wants help to find employment? No Meaningful activities Vide games, listen to music, watch movies, and watch wrestling. Financial Situation Describe current financial situation Comfortable Financial assistance? SSI and SSDI Service Service? No Mental Health and Addiction Treatment Current/Past substance abuse? No Comments Alcohol: Coquito or Ponche in the holidays. Cigarettes/Tobacco: None Cannabis/Edibles: None Current/Past addictive behavior concerns? No Psychiatric history The patient is currently prescribed Trazodone for insomnia. He has been involved in mental health treatment since childhood and previously received services through [facility]. During high school, she experienced multiple mental health crises and was subsequently referred to Intensive Home Treatment (IHT) The patient has remained psychiatrically stable since his early 20s and is not currently engaged in counseling. He has never been hospitalized for mental health reasons. Medical and Physical Health Summary Additional Medical History not covered in history None aditional Sexual History concerns None reported Physical exam in the last year? Yes Pain Screening Current pain? No Pain in the last few months? No Medications Is the patient compliant with medications? Yes (But needs reminders.) Does the patient have Britt Guardian in place? Not applicable Does the patient use complimentary health approaches? No Trauma/Abuse History History of trauma? 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 Ongoing behavioral health and nutritional support are recommended, and a medical weight loss program may be a more appropriate option at this stage. This provider will consult with the team to determine appropriate next steps. Next appointment: TBD. Telehealth Telehealth Telehealth Platform: [employer] Location of provider rendering services: other (Home office. [place], [place]) Location of patient: address on file Patient Identification confirmed using: Name, : Yes Telehealth method: video Patient verbally consented to treatment: Yes Patient verbally consented to billing insurance company: Yes Patient informed of any privacy concerns related to visit: Yes Minutes spent on Phone/Video with Pt.: 40 Coding Level of Care Code Established Pt Tele Psytx 45 mins (21865) Patient Type Established Diagnoses Neurodevelopmental disorder F89 Pre-bariatric surgery psychological evaluation Z71.89 Time Spent (min) 40
--- OUTSIDE RECORDS SUMMARY | 2024-11-03 11:09 | XMS_ITS | Encounter Summary ---
Author Organization [facility] Address [address] [place] [address] Care Team Providers Care Oil Field Worker Name Role Phone Unavailable Primary Care Provider Unavailabl e Encounter Details Date Type Department Care Team (Late st Contact Info) Description 11/14/2022 Dental Interim Note [facility] [address] [place] [phone] Pamela Monsalve [address] [place], [place] [id number] Social History Tobacco Use Types Packs/Day Years [...] Care Team (Late st Contact Info) Description 12/08/2024 9:00 AM EDT Office Visit [facility] [place] [phone] Qiana Dominguez, MELISSA [address] [place] [address] 03/23/2025 10:20 AM EST Office Visit [facility] [place] [phone] Jennifer Denney [address] [place] [address] documented as of this encounter Visit Diagnoses Not on filedocumented in this encounter
--- OUTSIDE RECORDS SUMMARY | 2024-11-03 11:09 | XMS_ITS | Clinical Summary ---
Demographics Address [address] [place] [address] Home Phone Preferred Language en Marital Status Single Buddhism Affiliation Unknown Race Unknown Ethnic Group or Author Organization [facility] ity Address [address] [place] [address] Care Team Providers Care Dietetic Technician Registered Name Role Phone Unavailable Primary Care Provider [...] (2023-2 5 season) 2023 Influenza Vaccine (#1) 2024 HIB Vaccines Aged Out No longer [...] 5 Years) and At-Risk Patients (6 to 49 Years) Aged Out No longer eligible b ased on patient's age to complete this topic RSV Immunization Patients Un wendy 20 months Aged Out No longer eligible b ased on patient's age to complete this topic Varicella Vaccines Aged Out No longer eligible based on patient's age to complete this topic
== END 2024-11-03 11:15 | disposition home or self-care (01) ==
LOC: HO.HBST 10:20
PROVIDERS: PCP Internal Medicine; Visit Provider Counselor Mental Health
DX: F89 Unspecified disorder of psychological development (principal); Z71.89 Other specified counseling
CPT/HCPCS: 90834

== ENCOUNTER 2025-01-05 08:38 | Outpatient (AMB) | payer OTHER, SELFPAY ==
[2025-01-05 08:46] VITALS: BP 126/74; PULSE 80; TEMP 36.3; O2SAT 97; BMI 44.0
--- NOTE | 2025-01-05 08:46 | MHC.PC.OV ---
Vital Signs 01/05/25 08:46 Height 5 ft 7 in Weight 281 lb 2 oz BMI 44.0 BP 126/74 Blood Pressure Location Lt brachial Position Sitting Pulse 80 Pulse Source Pulse Oximeter Temp 97.3 F Temp Source Temporal Artery Scan Pulse Oximetry (%) 97 Oxygen Delivery Method Room Air Intake Visit Reasons: DM Accompanied by: Mother Allergies No Known Allergies Allergy (Verified 01/05/25 08:49) Tobacco use date assessed: 01/05/25 Dental Screening Dental Screen Date: 01/05/25 Did you have a dental visit in the last 12 months?: Yes Did you have a dental problem in the last 6 months where you did not have access to dental care?: No Was dental information given to patient?: Patient has dentist PENDING SALE TO [facility] Medical History Blood pressure elevated without history of HTN LFT elevation Seizures Vitamin D deficiency Cerebral palsy Obstructive sleep apnea Surgical History Hx of adenoidectomy History of vasectomy Family History Father Alcohol abuse Mother Uterine cancer Brother No problems noted. Maternal Grandfather No problems noted. Maternal Grandmother No problems noted. Paternal Grandmother Myocardial infarct Paternal Grandfather Myocardial infarct Social History Housing: Other Alcohol intake: never Patient Tobacco Use Status: Never used Tobacco e-Cigarette/Vaping Use: Never Used Second Hand Smoke Exposure: No service: No Current occupational status: employed Cognitive needs: Yes Hearing needs: No Vision needs: No Questionnaire PHQ-9 Over the last 2 weeks, how often have you been bothered by any of the following problems? 1. Little interest or pleasure in doing things: nearly every day 2. Feeling down, depressed, or hopeless: not at all 3. Trouble falling or staying asleep, or sleeping too much: not at all 4. Feeling tired or having little energy: not at all 5. Poor appetite or overeating: not at all 6. Feeling bad about yourself - or that you are a failure or have let yourself or your family down: not at all 7. Trouble concentrating on things, such as reading the newspaper or watching television: not at all 8. Moving or speaking so slowly that other people could have noticed. Or the opposite - being so fidgety or restless that you have been moving around a lot more than usual: not at all 9. Thoughts that you would be better off or of hurting yourself in some way: not at all Total score: 3 Source: Developed by Drs. Andrés Arias, Dimple Hill, Dexter Richmond and colleagues, with an educational carol ann from [employer]. Thrive Questionnaire Date Thrive assessed: 08/27/24 I am a: Parent/Caregiver What is your living situation today?: I have a steady place to live Within the past 12 months, did the food you bought not last and you didn't have the money to get more?: Never true Within the past 12 months, did you worry whether your food would run out before you got money to buy more?: Never true Do you have trouble paying for medicines?: No Do you have trouble getting transportation to medical appointments?: No Do you have trouble paying your heating and electricity bill?: No Do you have trouble taking care of your child, family member or friend?: No Do you have trouble with day-to-day activities such as bathing, preparing meals, shopping, managing finances, etc.?: I choose not to answer this question Are you currently unemployed and looking for a job?: No Are you interested in more education?: I choose not to answer this question Please select the resources that you would like help with: None Currently or been in a relationship where the following occur: No concerns reported THRIVE Score: 0 AUDIT C Alcohol Use Questionnaire (AUDIT-C) 1. How often do you have a drink containing alcohol?: Never 3. How often do you have six or more drinks on one occasion?: Never Total Score: 0 AUTUMN-7 AMB Questionnaire AUTUMN-7 Date AUTUMN - 7 assessed: 05/27/24 Feeling nervous, anxious, or on edge: 1 = Several days Not being able to stop or control worryin = More than half the days Worrying too much about different things: 0 = Not at all Trouble relaxin = Not at all Being so restless that it is hard to sit still: 0 = Not at all Becoming easily annoyed or irritable: 2 = More than half the days Feeling afraid as if something awful might happen: 0 = Not at all Total AUTUMN-7 score (0-4 normal; 5-9 mild; 10-14 moderate; 15-21 severe): 5 Source: Developed by Drs. Andrés Arias, Dimple Hill, Dexter Richmond and colleagues, with an educational carol ann from [employer]. Physical exam (Primary Care) Vital Signs: Last Vital Signs Temp 97.3 F 01/05/25 08:46 Pulse 80 01/05/25 08:46 BP 126/74 01/05/25 08:46 Pulse Ox 97 01/05/25 08:46 Oxygen Delivery Method Room Air 01/05/25 08:46 BMI result Body Mass Index 44.0 Tobacco/Smoking Status: Tobacco use Status Tobacco use date assessed 01/05/25 01/05/25 08:52 Patient Tobacco Use Status Never used Tobacco 01/05/25 08:52 Tobacco use type 09/03/24 08:53 e-Cigarette/Vaping Use Never Used 01/05/25 08:52 PHQ-9: PHQ-9 Score PHQ-9: Total score 3 01/05/25 09:15 Thrive Assessment: Date of Thrive Assessment Date Thrive assessed 08/27/24 01/05/25 08:52 Currently or been in a relationship where the following occur: No concerns reported Const General: alert; No acute distress Eyes Conjunctivae: conjunctivae normal Resp Auscultation: clear to auscultation bilaterally Cardio Rate: regular rate Rhythm: regular rhythm GI Inspection: Yes normal to inspection Extrem General: Yes normal to inspection and No edema Coding Level of Care Code Est Pt Level 4 (31365) Complex EM visit Add On G2211 Diagnoses Impaired glucose tolerance R73.02 Hypertension I10 Morbid obesity due to excess calories E66.01 Fatty liver K76.0 Obstructive sleep apnea G47.33 Assessment & Plan Assessment & Plan (1) Impaired glucose tolerance: Code(s): R73.02 - Impaired glucose tolerance (oral) Category: Medical Plan: Decrease the amount of carbohydrate intake, pasta, bread, rice and potatoes are all sugar and that is aside from all the sweet stuff, remember that fruits are good but they are Sweet also. (2) Hypertension: Code(s): I10 - Essential (primary) hypertension Category: Medical Plan: Patient is on hydrochlorothiazide 12.5 mg once a day (3) Morbid obesity due to excess calories: Code(s): E66.01 - Morbid (severe) obesity due to excess calories Category: Medical Plan: Diet and exercise. Patient has been placed on Zepbound 12.5 mg once a day (4) Fatty liver: Code(s): K76.0 - Fatty (change of) liver, not elsewhere classified Category: Medical Plan: Low-fat diet and exercise (5) Obstructive sleep apnea: Comment: CPAP use Code(s): G47.33 - Obstructive sleep apnea (adult) (pediatric) Category: Medical Plan: Continue to use the CPAP more than 4 hours a night and benefits from this. Plan History of Present Illness The patient is a 34-year-old male presenting for a follow-up visit to manage multiple chronic conditions including morbid obesity, obstructive sleep apnea, and hypertension. The patient has a history of morbid obesity, with a recent weight loss of 14 pounds noted since the last visit in August 2024. He has been referred for weight management and behavioral health interventions, but is not currently a candidate for surgical weight loss due to cognitive limitations. The patient also has a history of obstructive sleep apnea, for which he uses a CPAP machine regularly, achieving more than 4 hours of sleep per night. Hypertension is another chronic condition being managed, with the patient currently on hydrochlorothiazide 12.5 mg once daily. The patient has been advised to continue with dietary modifications and exercise to aid in weight management and blood pressure control. The patient has a history of nonalcoholic fatty liver disease and impaired glucose tolerance, with the last blood work showing elevated liver function tests and a blood sugar level of 112 mg/dL. Vitamin B12 levels were noted to be slightly low, and thyroid function was normal. The patient also has cervical palsy and osteoarthritis, which are part of his chronic health issues. Health Maintenance - Weight management and behavioral health interventions recommended - Regular use of CPAP for obstructive sleep apnea - Dietary modifications and exercise for hypertension and weight management - Follow-up blood work to monitor liver function and glucose levels Social History Review of Systems - General: Reports weight loss of 14 pounds since last visit - Respiratory: Reports regular use of CPAP, achieving more than 4 hours of sleep per night - Endocrine: Denies thyroid dysfunction Physical Exam Results - Labs: Normal blood count, normal electrolytes, normal renal function, elevated liver function tests, blood sugar level of 112 mg/dL, low Vitamin B12, normal thyroid function Plan Patient was informed and verbally consented to the use of an ambient scribe for clinic note documentation during this visit. 1. Morbid Obesity The patient is advised to continue with weight management strategies, including dietary modifications and exercise, as well as behavioral health interventions. Surgical weight loss is not currently an option due to cognitive limitations. 2. Obstructive Sleep Apnea The patient is advised to continue using the CPAP machine regularly, achieving more than 4 hours of sleep per night. 3. Hypertension The patient is currently on hydrochlorothiazide 12.5 mg once daily and is advised to continue with dietary modifications and exercise to aid in blood pressure control. 4. Nonalcoholic Fatty Liver Disease Follow-up blood work is recommended to monitor liver function. 5. Impaired Glucose Tolerance The patient is advised to continue with dietary modifications and exercise to manage glucose levels. 6. Vitamin B12 Deficiency Monitoring of Vitamin B12 levels is recommended, with potential supplementation if levels remain low. Discussion Notes During the visit, we discussed the importance of continuing weight management strategies, including dietary modifications and exercise, as well as the use of CPAP for obstructive sleep apnea. The patient was informed that surgical weight loss is not currently an option due to cognitive limitations. We also reviewed the need for follow-up blood work to monitor liver function and glucose levels. Patient Instructions - Continue with dietary modifications and exercise to aid in weight management and blood pressure control. - Use CPAP machine regularly to manage obstructive sleep apnea. - Schedule follow-up blood work to monitor liver function and glucose levels. Orders: Orders Complete Blood Count Auto Diff Today R73.02 - Impaired glucose tolerance (oral) Free T4 (Free Thyroxine) Today R73.02 - Impaired glucose tolerance (oral) Thyroid Stimulating Hormone Today R73.02 - Impaired glucose tolerance (oral) Lipid Panel Today E78.00 - Pure hypercholesterolemia, unspecified, R73.02 - Impaired glucose tolerance (oral) Comprehensive Met. Panel Today R73.02 - Impaired glucose tolerance (oral) Hemoglobin A1c Today R73.02 - Impaired glucose tolerance (oral) Vitamin B12 and Folate Today R73.02 - Impaired glucose tolerance (oral)
--- OUTSIDE RECORDS SUMMARY | 2025-01-05 10:00 | XMS_ITS | Encounter Summary ---
Author Organization [facility] Address [address] [place] [address] Care Team Providers Care Winemaker Name Role Phone Unavailable Primary Care Provider Unavailabl e Encounter Details Date Type Department Care Team (Late st Contact Info) Description 11/14/2022 Dental Interim Note [facility] [address] [place] [phone] Pamela Monsalve [address] [place], [place] [phone] Social History Tobacco Use Types Packs/Day Years [...] Care Team (Late st Contact Info) Description 01/12/2025 1:00 PM EDT Office Visit [facility] [place] [phone] Qiana Dominguez, MELISSA [address] [place] [address] 03/23/2025 10:20 AM EST Office Visit [facility] [place] [phone] Jennifer Denney [address] [place] [address] documented as of this encounter Visit Diagnoses Not on filedocumented in this encounter
--- OUTSIDE RECORDS SUMMARY | 2025-01-05 10:00 | XMS_ITS | Clinical Summary ---
Author Organization [facility] Address [address] [place] [address] Care Team Providers Care Manager Personnel Selection Name Role Phone Unavailable Primary Care Provider [...] 1.1 % creaIndications :Caries of enamel (incipient) [place] twice daily with toothpaste then expectorate. Do not rinse. 51 g 3 3 Active Active Problems Problem Noted Date Diagnosed Date Fractured dental hoahaoism with loss of materi al 02/25/2024 Encounters Date Type Department Care Team Description 10/20/2024 9:00 AM EDT Office Visit [facility] [address] [place] [address] [phone] Yasemin Lizarraga DDS 10/13/2024 10:20 AM EDT Office Visit [facility] [address] [place] [address] [phone] Yasemin Lizarraga DDS from Last 3 Months Immunizations Immunization Administration Dates Next Due Moderna [...] Sign Reading Time Taken Comments Blood Pressure 134/89 10/20/2024 8:53 AM EDT Pulse 80 10/20/2024 8:53 AM EDT Temperature - - Respiratory Rate - - Oxygen Saturation - - Inhaled Oxygen Concentration - - Weight - - Height - - Body Mass Index - - Plan of Treatment Upcoming Encounters Date Type Department Care Team (Late st Contact Info) Description 01/12/2025 1:00 PM EDT Office Visit [facility] [address] [place] [phone] Qiana Dominguez, DMD [address] [place] [address] 03/23/2025 10:20 AM EST Office Visit [facility] [place] [phone] Jennifer Denney [address] [place] [address] Health Maintenance Due Date Last Done Comments Anxiety Screening 1992 Hepatitis C Screening 1992 HIV Screening 07/15/2007 Medicare Annual Wellness Visit 2010 Alcohol and Drug Screen 04/28/2024 Depression Annual Screen 04/28/2024 [id number] ( season) 2024 04/24/2021, 08/28/2020, 07/28/2020 Imm-Influenza (#1) 2024 03/12/2017, 12/24/2014 Dental Perio Charting 02/26/2025 02/25/2024 , 10/31/2022, 05/01/2022, Additional history exists Dental BW 09/17/2025 09/15/2024, 01/28, 10/31/2022, Additional history exists Dental Examination 09/17/2025 09/15/2024, 1 , 10/31/2022, Additional history exists Dental Prophy 09/17/2025 09/15/2024, 01/28, 10/31/2022, Additional history exists Hypertension Screening (#1) 10/20/2025 Tobacco Screening 10/20/2025 10/20/2024 Imm-DTaP/Tdap/Td (9 - Td or Tdap) 06/03/2027 06/03/2017, 01/25/2011, 11/22/2004, Additional history exists Dental FMX/Pano 02/26/2029 02/25/2024 Imm-Hepatitis B Completed 09/17/1993, 03/29, 03/20/1993 Procedures Procedure Name Priority Date/Time Associated Diagnosis Comments CASE PRESENTATION SUBS DTL & EXTENSIVE TX PLN Routine 10/20/2024 9:00 AM EDT Caries of dentin 6 CA RESIN-BASED COMPOSITE TWO SURFACES ANTERIOR Routine 10/20/2024 9:00 AM EDT Caries of dentin CASE PRESENTATION SUBS DTL & EXTENSIVE TX PLN Routine 10/13/2024 10:20 AM EDT Caries of dentin 19 LIAM RESIN-BASED COMPOSITE - TWO SURFACES POSTERIOR Routine 10/13/2024 10:20 AM EDT Caries of dentin BITEWINGS - FOUR RADIOGRAPHIC IMAGES Routine 09/15/2024 9:40 AM EDT Chronic gingivitis, plaque induced Encounter for dental examination and cleaning with abnormal findings Periapical abscess with sinus tract PROPHYLAXIS - ADULT Routine 09/15/2024 9 :40 AM EDT Chronic gingivitis, plaque induced Encounter for dental examination and cleaning with abnormal findings Periapical abscess with sinus tract PERIODIC ORAL EVALUATION ESTABLISHED PATIENT Routine 09/15/2024 9:40 AM EDT Chronic gingivitis, plaque induced Encounter for dental examination and cleaning with abnormal findings Periapical abscess with sinus tract COMP PERIODONTAL EVALUATION - NEW/EST PATIENT Routine 02/25/2024 10:00 AM EDT Fractured dental hoahaoism with loss of material Chronic gingivitis, plaque induced INTRAORAL - COMP SERIES OF RADIOGRAPHIC IMAGES Routine 02/25/2024 10:00 AM EDT Chronic gingivitis, plaque induced Fractured dental hoahaoism with loss of material from Last 3 Months or Most Recently Relevant to Health Maintenance Insurance [place] Subscriber Plan / Payer ( fective 2020-Present) Name:Frantz Gruber Relation to Subscriber:Self Name:Frantz Gruber Payer ID:[id number] Group ID:Not on file Type:Medicaid Address: [address] [id number] MEDICARE - [place] [facility] - [facility]AL
--- OUTSIDE RECORDS SUMMARY | 2025-01-05 10:00 | XMS_ITS | Clinical Summary ---
Demographics Address [address] [facility] [facility] [facility] [address] [place] [address] Home Phone Preferred Language en Marital Status Single Lutheran Affiliation Unknown Race Unknown Ethnic Group or Author Organization [employer] [facility] ity Address [address] [place] [address] Care Team Providers Care Cisco Certified Network Professional Name Role Phone Unavailable Primary Care Provider [...] of 3 - 19+ 3-dose series) 07/15/2011 Depression Screening 04/28/2024 COVID-19 Vaccine (1 - 2023-2 5 season) 2024 Influenza Vaccine (#1) 2024 HIB Vaccines Aged [...]
== END 2025-01-05 09:27 | disposition home or self-care (01) ==
LOC: HO.HMCH 08:39
PROVIDERS: PCP Internal Medicine; Visit Provider Internal Medicine
DX: R73.02 Impaired glucose tolerance (oral) (principal); I10 Essential (primary) hypertension; E66.01 Morbid (severe) obesity due to excess calories; Z68.41 Body mass index [BMI] 40.0-44.9, adult; K76.0 Fatty (change of) liver, not elsewhere classified; G47.33 Obstructive sleep apnea (adult) (pediatric)

== ENCOUNTER → 2025-01-05 08:38 | Outpatient (BNVA) | payer OTHER, SELFPAY | PROVIDERS: PCP Internal Medicine; Visit Provider Internal Medicine | DX: R73.02 Impaired glucose tolerance (oral) (principal); I10 Essential (primary) hypertension; E66.01 Morbid (severe) obesity due to excess calories; K76.0 Fatty (change of) liver, not elsewhere classified; G47.33 Obstructive sleep apnea (adult) (pediatric); E53.8 Deficiency of other specified B group vitamins; Z79.899 Other long term (current) drug therapy; Z13.30 Encounter for screening examination for mental health and behavioral disorders, unspecified | CPT/HCPCS: 96127; 99212 ==

== ENCOUNTER 2025-01-08 09:48 | Outpatient (REF) | payer OTHER, SELFPAY ==
--- OUTSIDE RECORDS SUMMARY | 2025-01-08 09:51 | XMS_ITS | Clinical Summary ---
Demographics Address [address] [address] [facility] [address] [place] [address] Home Phone Preferred Language en Marital Status Single Sikhism Affiliation Unknown Race Unknown Ethnic Group or Author Organization [employer] [facility] ity Address [address] [place] [address] Care Team Providers Care Air Vice Marshal Name Role Phone Unavailable Primary Care Provider [...]
--- OUTSIDE RECORDS SUMMARY | 2025-01-08 09:51 | XMS_ITS | Clinical Summary ---
Author Organization [facility] Address [address] [place] [address] Care Team Providers Care Physical Chemistry Teacher Name Role Phone Unavailable Primary Care Provider [...] 1.1 % creaIndications :Caries of enamel (incipient) [place] twice daily with toothpaste then expectorate. Do not rinse. 51 g 3 3 Active Active Problems Problem Noted Date Diagnosed Date Fractured dental religious with loss of materi al 02/25/2024 Encounters Date Type Department Care Team Description 10/20/2024 9:00 AM EDT Office Visit [facility] [address] [place] [address] [phone] Yasemin Lizarraga DDS 10/13/2024 10:20 AM EDT Office Visit [facility] [address] [place] [address] [phone] Yasemin Lizarraga DDS from Last 3 Months [...] Description 01/12/2025 1:00 PM EDT Office Visit [facility] [address] [place] [phone] Qiana Dominguez, DMD [address] [place] [address] 03/23/2025 10:20 AM EST Office Visit [facility] [place] [phone] Jennifer Denney [address] [place] [address] Health Maintenance Due Date Last Done Comments Anxiety Screening 1992 Hepatitis C Screening 1992 HIV Screening 07/15/2007 Medicare Annual Wellness Visit 2010 Alcohol and Drug Screen 04/28/2024 Depression Annual Screen 04/28/2024 [id number] ( season) 2024 04/24/2021, 08/28/2020, 07/28/2020 Imm-Influenza [...] 9:00 AM EDT Caries of dentin 6 CT RESIN-BASED COMPOSITE TWO SURFACES ANTERIOR Routine 10/20/2024 [...] Routine 02/25/2024 10:00 AM EDT Fractured dental religious with loss of material Chronic gingivitis, plaque induced INTRAORAL - COMP SERIES OF RADIOGRAPHIC IMAGES Routine 02/25/2024 10:00 AM EDT Chronic gingivitis, plaque induced Fractured dental religious with loss of material from Last 3 Months or Most Recently Relevant to Health Maintenance Insurance [place] Sub[place] Plan / Payer ( fective 2020-Present) Name:Frantz Gruber Relation to Subscriber:Self Name:Frantz Gruber Payer ID:[id number] Group ID:Not on file Type:Medicaid Address: [address] [id number] MEDICARE - [place] [facility] - [facility]
--- OUTSIDE RECORDS SUMMARY | 2025-01-08 09:51 | XMS_ITS | Encounter Summary ---
Author Organization [facility] Address [address] [place] [address] Care Team Providers Care Embossing Press Operator Molded Goods Name Role Phone Unavailable Primary Care Provider Unavailabl e Encounter Details Date Type Department Care Team (Late st Contact Info) Description 11/14/2022 Dental Interim Note [facility] [address] [place] [phone] Pamela Monsalve [address] [place], [place] [phone] Social History Tobacco Use Types Packs/Day Years [...] Description 01/12/2025 1:00 PM EDT Office Visit [facility] [place] [phone] Qiana Dominguez, MELISSA [address] [place] [address] 03/23/2025 10:20 AM EST Office Visit [facility] [place] [phone] Jennifer Denney [address] [place] [address] documented as of this encounter Visit Diagnoses Not on filedocumented in this encounter
[2025-01-08 09:59] LABS: MANUAL DIFF FLAG NO
[2025-01-08 10:53] LABS: Hematocrit 45.5 % (42.0-52.0); Hemoglobin 15.4 g/dl (14.0-18.0); Imm Gran Abs Auto 0.04 X10*3/uL (0.00-0.03); Imm Gran Pct Auto 0.5 % (0.0-0.4); Lymphocytes Absolute Auto 2.3 X10*3/uL (1.2-4.9); Mean Corpuscular HGB Conc 33.8 g/dl (31.0-36.0); Mean Corpuscular Hemoglobin 29.1 pg (27.0-33.0); Mean Corpuscular Volume 86.0 fL (80.0-98.0); NRBC Abs Auto 0.000 X10*3/uL (0.0-0.012); NRBC Pct Auto 0.0 /100WBC (0.0-0.2); Platelet Count 185 X10*3/uL (160-400); Red Blood Count 5.29 X10*6/uL (4.60-5.80); White Blood Count 7.3 X10*3/uL (4.8-10.8)
[2025-01-08 11:04] LABS: Hemoglobin A1C 130.5299 umol/L; Total Hemoglobin (HGBA1C) 3994.7987 umol/L
[2025-01-08 12:09] LABS: Alanine Aminotransferase 45 U/L (0-40); Albumin Level 4.1 g/dL (3.5-5.0); Alkaline Phosphatase 54 U/L (39-117); Anion Gap 12 (12-20); Aspartate Amino Transferase 29 U/L (5-37); Blood Urea Nitrogen 15 mg/dL (9-16); Calcium 8.5 mg/dL (8.4-10.2); Carbon Dioxide 25 mmol/L (22-29); Chloride 107 mmol/L (96-108); Cholesterol 140 mg/dL (<200); Estimated Glomerular Filt Rate > 60; HDL Cholesterol 41 mg/dL (>40); Potassium 4.0 mmol/L (3.3-5.1); Sodium 140 mmol/L (135-145); Total Protein 6.9 g/dL (6.5-8.0); Triglycerides 80 mg/dL (<150)
[2025-01-08 12:28] LABS: Folate 10.3 ng/mL (> or = 4.0); Vitamin B12 290 pg/mL (200-900)
[2025-01-08 12:29] LABS: Free T4 (Free Thyroxine) 1.10 ng/dL (0.71-1.85); Thyroid Stimulating Hormone 0.40 uIU/mL (0.32-4.0)
== END 2025-01-08 09:49 | disposition home or self-care (01) ==
LOC: HO.LAB 09:48
PROVIDERS: PCP Internal Medicine; Visit Provider Internal Medicine
DX: R73.02 Impaired glucose tolerance (oral) (principal); E78.00 Pure hypercholesterolemia, unspecified
CPT/HCPCS: 36415; 80053; 80061; 82607; 82746; 83036; 84439; 84443; 85025

== ENCOUNTER 2025-02-08 08:37 | Outpatient (AMB) | payer OTHER, SELFPAY ==
[2025-02-08 08:46] VITALS: BP 114/78; PULSE 82; TEMP 36.1; O2SAT 97; BMI 43.4
--- NOTE | 2025-02-08 08:46 | MHC.PC.OV ---
Vital Signs 02/08/25 08:46 Height 5 ft 7 in Weight 277 lb BMI 43.4 BP 114/78 Blood Pressure Location Lt brachial Position Sitting Pulse 82 Pulse Source Pulse Oximeter Temp 97.0 F Temp Source Temporal Artery Scan Pulse Oximetry (%) 97 Oxygen Delivery Method Room Air Intake Visit Reasons: Annual Exam Accompanied by: Mother Allergies No Known Allergies Allergy (Verified 02/08/25 08:49) Medication List - Last Reconciled 02/08/25 by Panda Bansal MD blood pressure monitor (Blood Pressure Kit) As directed [CPAP full face mask medium pressure of 12 cm humidified air As directed] hydrochlorothiazide 12.5 mg PO DAILY ketoconazole 2% 1 appl topical 2XW tirzepatide (weight loss) (Zepbound) 15 mg (0.5 mL) subcut QWEEK trazodone 150 mg PO BEDTIME PRN triamcinolone acetonide 0.5% 1 appl topical BID Tobacco use date assessed: 02/08/25 Dental Screening Dental Screen Date: 02/08/25 Did you have a dental visit in the last 12 months?: Yes Did you have a dental problem in the last 6 months where you did not have access to dental care?: No Was dental information given to patient?: Patient has dentist [facility] Medical History (Updated 02/08/25 @ 08:57 by Panda Bansal MD) Annual physical exam Blood pressure elevated without history of HTN LFT elevation Seizures Vitamin D deficiency Cerebral palsy Obstructive sleep apnea Surgical History Hx of adenoidectomy History of vasectomy Family History Father Alcohol abuse Mother Uterine cancer Brother No problems noted. Maternal Grandfather No problems noted. Maternal Grandmother No problems noted. Paternal Grandmother Myocardial infarct Paternal Grandfather Myocardial infarct Social History Housing: Other Alcohol intake: never Patient Tobacco Use Status: Never used Tobacco e-Cigarette/Vaping Use: Never Used Second Hand Smoke Exposure: No service: No Current occupational status: employed Cognitive needs: Yes Hearing needs: No Vision needs: No Questionnaire PHQ-9 Over the last 2 weeks, how often have you been bothered by any of the following problems? 1. Little interest or pleasure in doing things: nearly every day 2. Feeling down, depressed, or hopeless: not at all 3. Trouble falling or staying asleep, or sleeping too much: not at all 4. Feeling tired or having little energy: not at all 5. Poor appetite or overeating: not at all 6. Feeling bad about yourself - or that you are a failure or have let yourself or your family down: not at all 7. Trouble concentrating on things, such as reading the newspaper or watching television: not at all 8. Moving or speaking so slowly that other people could have noticed. Or the opposite - being so fidgety or restless that you have been moving around a lot more than usual: not at all 9. Thoughts that you would be better off or of hurting yourself in some way: not at all Total score: 3 Source: Developed by Drs. Andrés Arias, Dimple Hill, Dexter Richmond and colleagues, with an educational carol ann from [employer]. Thrive Questionnaire Date Thrive assessed: 08/27/24 I am a: Parent/Caregiver What is your living situation today?: I have a steady place to live Within the past 12 months, did the food you bought not last and you didn't have the money to get more?: Never true Within the past 12 months, did you worry whether your food would run out before you got money to buy more?: Never true Do you have trouble paying for medicines?: No Do you have trouble getting transportation to medical appointments?: No Do you have trouble paying your heating and electricity bill?: No Do you have trouble taking care of your child, family member or friend?: No Do you have trouble with day-to-day activities such as bathing, preparing meals, shopping, managing finances, etc.?: I choose not to answer this question Are you currently unemployed and looking for a job?: No Are you interested in more education?: I choose not to answer this question Please select the resources that you would like help with: None Currently or been in a relationship where the following occur: No concerns reported THRIVE Score: 0 AUDIT C Alcohol Use Questionnaire (AUDIT-C) 1. How often do you have a drink containing alcohol?: Never 3. How often do you have six or more drinks on one occasion?: Never Total Score: 0 AUTUMN-7 AMB Questionnaire AUTUMN-7 Date AUTUMN - 7 assessed: 05/27/24 Feeling nervous, anxious, or on edge: 1 = Several days Not being able to stop or control worryin = More than half the days Worrying too much about different things: 0 = Not at all Trouble relaxin = Not at all Being so restless that it is hard to sit still: 0 = Not at all Becoming easily annoyed or irritable: 2 = More than half the days Feeling afraid as if something awful might happen: 0 = Not at all Total AUTUMN-7 score (0-4 normal; 5-9 mild; 10-14 moderate; 15-21 severe): 5 Source: Developed by Drs. Andrés Arias, Dimple Hill, Dexter Richmond and colleagues, with an educational carol ann from [employer]. Review of Systems Const Denies poor appetite and Denies weakness Eyes Denies no additional complaints ENT Reports Normal hearing present, Denies dizziness, Denies nasal congestion, Denies tinnitus and Denies sore throat Card Denies chest pain, Denies syncope, Denies rapid heart rate and Denies dyspnea Resp Denies cough and Denies dyspnea GI Denies change in stool character, Reports constipation, Denies diarrhea, Denies nausea and Denies vomiting Denies dysuria and Denies urinary frequency Neuro Reports Normal hearing present, Denies confusion, Denies dizziness, Denies syncope and Denies weakness Psych Denies confusion Physical exam (Primary Care) Vital Signs: Last Vital Signs Temp 97.0 F 02/08/25 08:46 Pulse 82 02/08/25 08:46 BP 114/78 02/08/25 08:46 Pulse Ox 97 02/08/25 08:46 Oxygen Delivery Method Room Air 02/08/25 08:46 BMI result Body Mass Index 43.4 Tobacco/Smoking Status: Tobacco use Status Tobacco use date assessed 02/08/25 02/08/25 08:50 Patient Tobacco Use Status Never used Tobacco 02/08/25 08:50 Tobacco use type 09/03/24 08:53 e-Cigarette/Vaping Use Never Used 02/08/25 08:50 PHQ-9: PHQ-9 Score PHQ-9: Total score 3 02/08/25 09:16 Thrive Assessment: Date of Thrive Assessment Date Thrive assessed 08/27/24 02/08/25 08:50 Currently or been in a relationship where the following occur: No concerns reported Const General: No confusion Orientation/consciousness: No confusion HENMT Head: Yes normocephalic Ears: external ears normal and TM's normal bilaterally Face and sinus: Yes normal facial exam Mouth: moist mucous membranes Throat: Yes tonsils normal Eyes Conjunctivae: conjunctivae normal Pupils: Equal, round and reactive pupils present and Pupil accommodation reflex normal Direct Ophthalmoscopy: normal light reflex Neck Neck: No lymphadenopathy Thyroid: Thyroid normal Chest Chest palpation & inspection: normal inspection of the chest Resp Effort & Inspection: normal respiratory effort and no audible wheezes Auscultation: clear to auscultation bilaterally, no crackles, no wheezes and lung sounds not diminished Cardio Rate: regular rate Rhythm: regular rhythm Peripheral pulses: radial pulses present and dorsalis pedis present GI Palpation (GI): no masses Auscultation: normal bowel sounds and normoactive bowel sounds Rectal Exam - Male: Yes deferred Skin General skin exam: no rashes or lesions noted Rashes: no rashes Neuro General: No confusion Cranial nerves: Yes Equal, round and reactive pupils present and Yes Normal hearing present Cognition (Neuro): normal cognition Gait exam (Neuro): Normal gait present Motor exam (neuro): 5/5 motor strength present throughout Deep tendon reflexes (DTR's): Right brachioradialis reflex intensity grade: 2+, Left brachioradialis reflex intensity grade: 2+, Right patellar reflex intensity grade: 2+ and Left patellar reflex intensity grade: 2+ Extrem General: No edema Office Procedures Flu Questionnaire Does the patient have a severe egg allergy?: No Does the patient have severe life threatening allergies?: No Does the patient have a fever or illness today?: No Has the patient ever had Guillain-[place] Syndrome?: No Has the patient ever had any past reaction to a flu shot?: No Immunizations Fluarix [id number] (PF) 45 mcg (15 mcg x 3)/0.5 mL IM syringe Performing Provider: Panda Bansal MD [place] [facility] [place] [facility] Administered by: Susan Funez CMA on 02/08/25 09:16 Dose Route Admin Location Dispensed Lot Number Expiration Date NDC Market Research Manager 0.5 mL IM Left Deltoid 0.5 mL [id number] 10/25/25 [id number] [employer] VIS Given Date VIS Provided VIS Publication Date 02/08/25 Single Vaccine 24 Eligibility Eligibility Date Funding Source Not VFC Eligible 02/08/25 Private Coding Level of Care Code Est Pt Prev Care 18-39y([id number]) Diagnoses Annual physical exam Z00.00 Obstructive sleep apnea G47.33 Fatty liver K76.0 Impaired glucose tolerance R73.02 Hypertension I10 Morbid obesity due to excess calories E66.01 Assessment & Plan Assessment & Plan (1) Annual physical exam: Code(s): Z00.00 - Encounter for general adult medical examination without abnormal findings Category: Medical Plan: Patient is advised to eat healthy, keep well hydrated, keep active and have adequate sleep. (2) Obstructive sleep apnea: Comment: CPAP use Code(s): G47.33 - Obstructive sleep apnea (adult) (pediatric) Category: Medical Plan: Continue to use the CPAP more than 4 hours a night and benefits from this. (3) Fatty liver: Code(s): K76.0 - Fatty (change of) liver, not elsewhere classified Category: Medical Plan: Low-fat diet and exercise (4) Impaired glucose tolerance: Code(s): R73.02 - Impaired glucose tolerance (oral) Category: Medical Plan: Decrease the amount of carbohydrate intake, pasta, bread, rice and potatoes are all sugar and that is aside from all the sweet stuff, remember that fruits are good but they are Sweet also. (5) Hypertension: Code(s): I10 - Essential (primary) hypertension Category: Medical Plan: Continue with blood pressure medication. Decrease salt intake and exercise on hydrochlorothiazide 12.5 mg once a day (6) Morbid obesity due to excess calories: Code(s): E66.01 - Morbid (severe) obesity due to excess calories Category: Medical Plan: Diet and exercise and continue with tirzepatide 15 mg once a day Plan History of Present Illness The patient is a 34-year-old male presenting with a wellness visit. He has a history of morbid obesity and autism, which have been ongoing conditions. The patient also has cerebral palsy and obstructive sleep apnea, for which he uses CPAP therapy regularly. Hypertension is another chronic condition being managed with hydrochlorothiazide 12.5 mg daily. His blood pressure readings have been stable, with no significant episodes of hypotension reported. Recent laboratory tests showed normal blood count, electrolytes, and renal function. However, liver enzymes were elevated but have improved compared to previous results. Cholesterol levels are well-controlled with an LDL of 83 mg/dL. The patient has a mild vitamin B12 deficiency, for which supplementation has been prescribed. Health Maintenance - CPAP therapy for obstructive sleep apnea, used more than 4 hours per night. - Low-fat diet and exercise recommended for weight management. - Flu vaccination administered during the visit. Social History - Exercise: Engages in physical activity as part of weight management plan. Review of Systems - General: Denies dizziness, nausea, vomiting, or fever. - Cardiovascular: Denies chest pain or heartburn. - Respiratory: Denies dyspnea or waking up short of breath. - Gastrointestinal: Reports normal bowel movements, denies constipation. - Genitourinary: Reports normal urination, denies nocturia. - Neurological: Denies seizures or dizziness. Physical Exam General: Cooperative, healthy appearing, comfortable, no acute distress and well developed Orientation: Patient oriented x3 Limitations: No limitations Head: Normal to inspection Ears: Hearing grossly normal bilaterally Nose: Normal external nose present Face and sinus: Normal facial exam Eyes: Appearance normal, both eyes and all related structures Neck: Normal visual inspection and Yes full ROM Respiratory: Normal respiratory effort and able to speak in complete sentences. Clear to auscultation bilaterally Cardiovascular: Regular rate and rhythm. Normal S1 and S2 GI: Normal to inspection. Soft to palpation and nontender Skin: No rashes or lesions noted Neuro: Patient oriented x3 Extremities: Normal to inspection Results - Labs: Normal blood count, electrolytes, renal function, and blood sugar. - Liver Function Tests: Elevated liver enzymes, improved from previous results. - Lipid Panel: LDL cholesterol at 83 mg/dL. - Vitamin B12: Mild deficiency noted. Plan Patient was informed and verbally consented to the use of an ambient scribe for clinic note documentation during this visit. 1. Obesity The patient is advised to follow a low-fat diet and engage in regular exercise to manage obesity. Weight management is crucial, and progress will be monitored in follow-up visits. 2. Obstructive Sleep Apnea The patient is instructed to continue using CPAP therapy for more than 4 hours each night, which has shown benefits. 3. Hypertension Hypertension is managed with hydrochlorothiazide 12.5 mg daily, and blood pressure readings are stable. The patient is advised to continue the current medication regimen. 4. Elevated Liver Enzymes Liver enzymes are elevated but have improved; monitoring will continue to assess further improvement. 5. Vitamin B12 Deficiency Vitamin B12 supplementation has been prescribed to address the deficiency. Discussion Notes During the visit, we discussed the importance of continuing CPAP therapy for obstructive sleep apnea and maintaining a low-fat diet and exercise regimen for weight management. The patient was informed about the stable management of hypertension with hydrochlorothiazide and the improvement in liver enzyme levels. Vitamin B12 supplementation was prescribed to address the deficiency, and the patient agreed to receive a flu vaccination during the visit. Patient Instructions - Continue using CPAP therapy for more than 4 hours each night. - Follow a low-fat diet and engage in regular exercise. - Take prescribed vitamin B12 supplements as directed. - Continue taking hydrochlorothiazide 12.5 mg daily for hypertension. - Receive the flu vaccination today. Orders: Orders Influenza [id number] Immunization Today Z23 - Encounter for immunization Medications: New cyanocobalamin (vitamin B-12) 1,000 mcg PO DAILY 30 caps 3RF E53.8 - Deficiency of other specified B group vitamins Refilled tirzepatide (weight loss) (Zepbound) 15 mg (0.5 mL) subcut QWEEK 2 mL 0RF E66.01 - Morbid (severe) obesity due to excess calories
--- OUTSIDE RECORDS SUMMARY | 2025-02-08 09:00 | XMS_ITS | Clinical Summary ---
Author Organization [facility] Address [address] [place] [address] Care Team Providers Care Mail Weigher Name Role Phone Unavailable Primary Care Provider [...] 1.1 % creaIndications :Caries of enamel (incipient) Meridian twice daily with toothpaste then expectorate. Do not rinse. 51 g 3 3 Active Active Problems Problem Noted Date Diagnosed Date Fractured dental religious with loss of materi al 02/25/2024 Encounters Date Type Department Care Team Description 01/12/2025 1:00 PM EDT Office Visit [facility] [id number] [place] [phone] Qiana Dominguez, MELISSA from Last 3 Months Immunizations Immunization Administration [...] Care Team (Late st Contact Info) Description 03/02/2025 3:30 PM EST Office Visit [facility] [place] [phone] Qiana Dominguez, DMD [address] [place] [address] 03/23/2025 10:20 AM EST Office Visit [facility] [place] [phone] Jennifer Denney [address] [place] [address] Health Maintenance Due Date Last Done Comments Anxiety Screening 1992 Hepatitis C Screening 1992 HIV Screening 07/15/2007 Medicare Annual Wellness Visit 2010 Imm-HPV (1 - 3-dose SCDM series) 07/15/2019 Alcohol and Drug Screen 04/28/2024 Depression Annual Screen 04/28/2024 [id number] ( season) 2024 04/24/2021, 08/28/2020, 07/28/2020 Imm-Influenza [...] SUBS DTL & EXTENSIVE TX PLN Routine 01/12/2025 1:00 PM EDT Necrosis of dental pulp LIMITED ORAL EVALUATION - PROBLEM FOCUSED Routine 01/12/2025 1:00 PM EDT Necrosis of dental pulp BITEWINGS - FOUR RADIOGRAPHIC IMAGES Routine 09/15/2024 [...] Most Recently Relevant to Health Maintenance Insurance [place]ICARE - [place] [facility] - DENTAL
--- OUTSIDE RECORDS SUMMARY | 2025-02-08 09:00 | XMS_ITS | Encounter Summary ---
Author Organization [facility] Address [address] [place] [address] Care Team Providers Care Fisher Terrapin Name Role Phone Unavailable Primary Care Provider Unavailabl e Encounter Details Date Type Department Care Team (Late st Contact Info) Description 11/14/2022 Dental Interim Note [facility] [address] [place] [phone] Pamela Monsalve [address] [place], [place] [phone] Social History Tobacco Use Types Packs/Day Years [...] Description 03/02/2025 3:30 PM EST Office Visit [facility] [address] [place] [phone] Qiana Dominguez, MELISSA [address] [place] [address] 03/23/2025 10:20 AM EST Office Visit [facility] [address] [place] [phone] Jennifer Denney [address] [place] [address] documented as of this encounter Visit Diagnoses Not on filedocumented in this encounter
--- OUTSIDE RECORDS SUMMARY | 2025-02-08 09:00 | XMS_ITS | Clinical Summary ---
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
== END 2025-02-08 09:24 | disposition home or self-care (01) ==
LOC: HO.HMCH 08:38
PROVIDERS: PCP Internal Medicine; Visit Provider Internal Medicine
DX: Z00.00 Encounter for general adult medical examination without abnormal findings (principal); G47.33 Obstructive sleep apnea (adult) (pediatric); K76.0 Fatty (change of) liver, not elsewhere classified; R73.02 Impaired glucose tolerance (oral); I10 Essential (primary) hypertension; E66.01 Morbid (severe) obesity due to excess calories; Z23 Encounter for immunization

== ENCOUNTER → 2025-02-08 08:37 | Outpatient (BNVA) | payer OTHER, SELFPAY | PROVIDERS: PCP Internal Medicine; Visit Provider Internal Medicine | DX: Z00.00 Encounter for general adult medical examination without abnormal findings (principal); G47.33 Obstructive sleep apnea (adult) (pediatric); K76.0 Fatty (change of) liver, not elsewhere classified; R73.02 Impaired glucose tolerance (oral); I10 Essential (primary) hypertension; E66.01 Morbid (severe) obesity due to excess calories; R79.89 Other specified abnormal findings of blood chemistry; E53.8 Deficiency of other specified B group vitamins; Z23 Encounter for immunization; Z68.41 Body mass index [BMI] 40.0-44.9, adult | CPT/HCPCS: 90471; 90656; 96127; 99395 ==